=== PATIENT | male | born 1935 | race Caucasian/White ===

== ENCOUNTER 2016-10-27 15:35 | Emergency (ER) | payer MEDICARE, BC ==
[2016-10-27 15:43] VITALS: BP 130/78
[2016-10-27 16:11] LABS: RAPID STREP SCREEN REAGENT QC YELLOW (YELLOW)
[2016-10-27] MEDS ORDERED: DEXAMETHASONE 10 MG/ML VIAL PO STA (17:02)
--- NOTE | 2016-10-27 17:05 | ED Physician Documentation ---
PD HPI HEENT - Stated complaint Stated Complaint: THROAT PX - Chief complaint Chief Complaint: Heent - History obtained from History obtained from: Patient - History of Present Illness Timing - onset: How many days ago (2) Timing - duration: Days (2) Timing - details: Gradual onset, Still present Location: Throat Improves: Medication Worsens: Sw[place]ing Associated symptoms: Congestion, Cough Similar symptoms before: Has not had sx before Recently seen: Not recently seen - Additional information Additional information: 81 y/o male with onset of sore throat over the past 2 days has had rapid progression of symptoms today. Review of Systems Constitutional: reports: Chills, Myalgias, Fatigue Eyes: denies: Decreased vision Ears: denies: Ear pain Nose: reports: Congestion Throat: reports: Sore throat Cardiac: denies: Chest pain / pressure Respiratory: reports: Cough. denies: Dyspnea GI: denies: Nausea, Vomiting : denies: Dysuria PD PAST MEDICAL HISTORY - Past Medical History Past Medical History: Yes Cardiovascular: Hypertension, Arrhythmia Respiratory: None Neuro: None Endocrine/Autoimmune: HyPOthyroidism, Other GI: None : Retention HEENT: None Psych: None Musculoskeletal: Osteoarthritis, Other Derm: None - Past Surgical History Past Surgical History: Yes Ortho: Knee replacement, Spine surgery - Present Medications Home Medications: Ambulatory Orders Medication Instructions Recorded Confirmed Flaxseed Oil [Flax Oil] 1,000 mg PO DAILY 07/05/13 03/08/16 Hydrochlorothiazide 12.5 mg PO DAILY 07/05/13 03/08/16 Levothyroxine [Synthroid] 75 mcg PO QDAC 07/05/13 03/08/16 Lutein Extract/Zeaxanthin Ext 1 each PO DAILY 07/05/13 03/08/16 [Lutein 15 mg Softgel] Metoprolol Tartrate [Lopressor] 25 mg PO BID 07/05/13 03/08/16 Multivitamin [Multi-Vitamin Daily] 1 each PO DAILY 07/05/13 03/08/16 [place]-3 Fatty Acids/Fish Oil [Fish 1 each PO DAILY 07/05/13 03/08/16 Oil 1,000 mg Capsule] Amoxicillin 500 mg PO TID #30 capsule 10/27/16 - Allergies Allergies/Adverse Reactions: Allergies Allergy/AdvReac Type Severity Reaction Status Date / Time No Known Drug Allergies Allergy Verified 10/27/16 15:43 - Social History Does the pt smoke?: No Smoking Status: Never smoker Does the pt drink ETOH?: No Does the pt have substance abuse?: No - Immunizations Immunizations are current?: Yes - POLST Patient has POLST: No PD ED PE NORMAL - Vitals Vital signs reviewed: Yes (normal ) - General General: No acute distress, Well developed/nourished - HEENT HEENT: Atraumatic, PERRL, EOMI, Ears normal, Other (The pharynx is with mild erythema and no significant swelling ) - Neck Neck: Supple, no meningeal sign, No bony TTP - Cardiac Cardiac: RRR, No murmur - Respiratory Respiratory: No respiratory distress, Clear bilaterally - Derm Derm: Normal color, Warm and dry, No rash - Extremities Extremities: No deformity, No edema - Neuro Neuro: No motor deficit, No sensory deficit - Psych Psych: Normal mood, Normal affect Results - Vitals Vitals: Vital Signs - 24 hr 10/27/16 15:40 Temperature 37 C Heart Rate 68 Respiratory 14 Rate Blood Pressure 130/78 O2 Saturation 100 Oxygen O2 Source [With Activity] Room air O2 Source [Without Activity] Room air O2 Source Room air - Labs Labs: Laboratory Tests 10/27/16 15:50 Group A Strep Rapid POSITIVE H PD MEDICAL DECISION MAKING - ED course Complexity details: considered differential, d/w patient ED course: 81 y/o male had his tonsils out at age 6 and now has acute strep pharyngitis. He is given decadron and we will put him on a course of amoxicillin. Departure - Departure Disposition: 01 Home, Self Care Clinical Impression: Strep pharyngitis Condition: Stable Instructions: ED Strep Pharyngitis Conf Follow-Up: Elicia Melgar MD [Primary Care Provider] - Prescriptions: Amoxicillin 500 mg PO TID #30 capsule
[2016-10-27] MEDS ORDERED: DEXAMETHASONE 10 MG/ML VIAL ONE (17:10)
== END 2016-10-27 17:15 | disposition home or self-care (01) ==
LOC: ED 15:35
DX: J02.0 Streptococcal pharyngitis (principal); I10 Essential (primary) hypertension
CPT/HCPCS: 87430; 99283

== ENCOUNTER 2017-02-20 21:17 | Emergency (ER) | payer MEDICARE, BC ==
[2017-02-20 21:57] LABS: BASOPHILS % (AUTO) 0.5 %; EOSINOPHILS # (AUTO) 0.1 10^3/uL (0.0-0.7); EOSINOPHILS % (AUTO) 0.7 %; HCT - HEMATOCRIT 41.5 % (42.0-52.0); HGB - HEMOGLOBIN 14.6 g/dL (14.0-18.0); LYMPHOCYTES # (AUTO) 1.3 10^3/uL (1.5-3.5); LYMPHOCYTES % (AUTO) 12.7 %; MEAN CORPUSCULAR HEMOGLOBIN 33.6 pg (27.0-31.0); MEAN CORPUSCULAR HGB CONC 35.3 g/dL (32.0-36.0); MEAN CORPUSCULAR VOLUME 95.3 fL (80.0-94.0); MEAN PLATELET VOLUME 7.5 fL (7.4-11.4); MONOCYTES # (AUTO) 0.9 10^3/uL (0.0-1.0); MONOCYTES % (AUTO) 8.2 %; NEUTROPHILS # (AUTO) 8.2 10^3/uL (1.5-6.6); NEUTROPHILS % (AUTO) 77.9 %; RED BLOOD COUNT 4.35 10^6/uL (4.70-6.10); RED CELL DISTRIBUTION WIDTH 12.9 % (12.0-15.0); UNCORRECTED WHITE BLOOD COUNT 10.5 x10^3/uL; WHITE BLOOD COUNT 10.5 x10^3/uL (4.8-10.8)
--- NOTE | 2017-02-20 22:06 | ED Physician Documentation ---
PD HPI ABD PAIN - Stated complaint Stated Complaint: ABD PAIN - Chief complaint Chief Complaint: Abd Pain - History obtained from History obtained from: Patient - History of Present Illness Timing - onset: How many hours ago (5) Timing - duration: Hours Timing - details: Abrupt onset, Now resolved Quality: Cramping, Sharp, Fullness/distended, Pain Location: Epigastric Improved by: Laying still Worsened by: Position, Palpation Associated symptoms: Nausea, Diarrhea. No: Vomiting Similar symptoms before: Has not had sx before Recently seen: Not recently seen - Additional information Additional information: 81-year-old male with a history of hypertension and no prior abdominal surgeries has developed pain after eating this evening. He had some feeling that he was bloated and had severe pain. The pain was severe enough that he drove himself to the emergency department this evening for evaluation. Since being here in the emergency department his pain is resolved. He has not had issues with this type of pain previously. He did have eggs and waffles for dinner tonight and he notes that he had some mild discomfort even before that but he does not remember what he had for lunch today. His symptoms are now resolved. Review of Systems Constitutional: denies: Fever, Chills, Myalgias Eyes: denies: Decreased vision Ears: denies: Ear pain Nose: denies: Congestion Throat: denies: Sore throat Cardiac: denies: Chest pain / pressure, Palpitations Respiratory: denies: Dyspnea, Cough GI: reports: Abdominal Pain, Nausea, Diarrhea. denies: Vomiting : denies: Dysuria, Frequency Musculoskeletal: denies: Neck pain, Back pain Neurologic: denies: Generalized weakness, Focal weakness, Numbness PD PAST MEDICAL HISTORY - Past Medical History Past Medical History: Yes Cardiovascular: Hypertension, Arrhythmia Respiratory: None Neuro: None Endocrine/Autoimmune: HyPOthyroidism, Other GI: None : Retention HEENT: None Psych: None Musculoskeletal: Osteoarthritis, Other Derm: None - Past Surgical History Past Surgical History: Yes Ortho: Knee replacement, Spine surgery - Present Medications Home Medications: Ambulatory Orders Medication Instructions Recorded Confirmed Flaxseed Oil [Flax Oil] 1,000 mg PO DAILY 07/05/13 02/20/17 Hydrochlorothiazide 12.5 mg PO DAILY 07/05/13 02/20/17 Levothyroxine [Synthroid] 75 mcg PO QDAC 07/05/13 02/20/17 Lutein Extract/Zeaxanthin Ext 1 each PO DAILY 07/05/13 02/20/17 [Lutein 15 mg Softgel] Metoprolol Tartrate [Lopressor] 25 mg PO BID 07/05/13 02/20/17 Multivitamin [Multi-Vitamin Daily] 1 each PO DAILY 07/05/13 02/20/17 [place]-3 Fatty Acids/Fish Oil [Fish 1 each PO DAILY 07/05/13 02/20/17 Oil 1,000 mg Capsule] - Allergies Allergies/Adverse Reactions: Allergies Allergy/AdvReac Type Severity Reaction Status Date / Time No Known Drug Allergies Allergy Verified 02/20/17 21:23 - Social History Does the pt smoke?: No Smoking Status: Never smoker Does the pt drink ETOH?: No Does the pt have substance abuse?: No - Immunizations Immunizations are current?: Yes - POLST Patient has POLST: No PD ED PE NORMAL - Vitals Vital signs reviewed: Yes (Tachycardic and hypertensive) - General General: Alert and oriented X 3, No acute distress, Well developed/nourished - HEENT HEENT: Atraumatic, PERRL - Neck Neck: Supple, no meningeal sign - Cardiac Cardiac: No murmur, Other (Tachycardia to 100) - Respiratory Respiratory: No respiratory distress, Clear bilaterally - Abdomen Abdomen: Soft, Non tender, Other (Normal bowel sounds throughout the reactive and specifically no right upper quadrant tenderness. No tenderness to deep palpation to any quadrant of the abdomen.) - Back Back: No CVA TTP, No spinal TTP - Derm Derm: Normal color, Warm and dry, No rash - Extremities Extremities: No deformity, No edema, No calf tenderness / cord - Neuro Neuro: No motor deficit, No sensory deficit - Psych Psych: Normal mood, Normal affect Results - Vitals Vitals: Vital Signs - 24 hr 02/20/17 02/20/17 02/20/17 21:19 22:00 22:40 Temperature 37 C Heart Rate 112 H 95 87 Respiratory 19 13 13 Rate Blood Pressure 135/86 H 102/74 102/76 O2 Saturation 97 97 96 02/20/17 02/21/17 02/21/17 23:34 00:30 01:35 Temperature 36.3 C L Heart Rate 96 90 90 Respiratory 13 17 14 Rate Blood Pressure 104/70 106/79 107/89 H O2 Saturation 99 99 98 Oxygen O2 Source [With Activity] Room air O2 Source [Without Activity] Room air O2 Source Room air - Labs Labs: Laboratory Tests 02/20/17 02/20/17 02/20/17 21:47 21:47 21:47 WBC 10.5 RBC 4.35 L Hgb 14.6 Hct 41.5 L MCV 95.3 H MCH 33.6 H MCHC 35.3 RDW 12.9 Plt Count 221 MPV 7.5 Neut # 8.2 H Lymph # 1.3 L [place] # 0.9 Eos # 0.1 Baso # 0.0 Absolute Nucleated RBC 0.00 Nucleated RBCs 0.0 Sodium 136 Potassium 3.7 Chloride 102 Carbon Dioxide 25 Anion Gap 9.0 BUN 23 H Creatinine 1.1 Estimated GFR (MDRD) 64 L Glucose 137 H Calcium 9.0 Total Bilirubin 0.8 AST 25 ALT 21 Alkaline Phosphatase 45 Troponin I < 0.04 Total Protein 6.7 Albumin 4.0 Globulin 2.7 Albumin/Globulin Ratio 1.5 Lipase 30 Urine Color Urine Clarity Urine pH Ur Specific [place] Urine Protein Urine Glucose (UA) Urine Ketones Urine Occult Blood Urine Nitrite Urine Bilirubin Urine Urobilinogen Ur Leukocyte Esterase Ur Microscopic Review Urine Culture Comments 02/20/17 22:47 WBC RBC Hgb Hct MCV MCH MCHC RDW Plt Count MPV Neut # Lymph # [place] # Eos # Baso # Absolute Nucleated RBC Nucleated RBCs Sodium Potassium Chloride Carbon Dioxide Anion Gap BUN Creatinine Estimated GFR (MDRD) Glucose Calcium Total Bilirubin AST ALT Alkaline Phosphatase Troponin I Total Protein Albumin Globulin Albumin/Globulin Ratio Lipase Urine Color YELLOW Urine Clarity CLEAR Urine pH 5.5 Ur Specific [place] >=1.030 H Urine Protein NEGATIVE Urine Glucose (UA) NEGATIVE Urine Ketones 15 H Urine Occult Blood NEGATIVE Urine Nitrite NEGATIVE Urine Bilirubin NEGATIVE Urine Urobilinogen 0.2 (NORMAL) Ur Leukocyte Esterase NEGATIVE Ur Microscopic Review NOT INDICATED Urine Culture Comments NOT INDICATED - Rads (name of study) gb ultrasound Radiology: Prelim report reviewed (Impression: 1. Coarsened liver parenchyma without mass or intrahepatic bile duct dilation. 2. Distended gallbladder without gallstones, pericholecystic fluid or sonographic Esteves sign. No gallbladder wall thickening. 3.Normal caliber common bile duct common bile duct not well seen due to bowel gas.), EMP read indepedently, See rad report Procedures - Bedside sono Bedside sono by EMP: With use of bedside ultrasound the gallbladder is imaged in shows a distended gallbladder with a solitary stone and no sonographic tenderness no wall thickening or pericholecystic fluid. PD MEDICAL DECISION MAKING - ED course Complexity details: reviewed old records, reviewed results, re-evaluated patient , considered differential, d/w patient ED course: Relatively healthy 81-year-old male presents to the emergency department with an episode of abdominal pain after eating that is now resolved and on bedside examination he does have a solitary stone in his gallbladder with a nontender gallbladder. I did offer the patient workup of this time concerning his gallbladder and he would like to proceed with this. The formal ultrasound is read with a distended gallbladder with a polyp and not a stone. Departure - Departure Disposition: 01 Home, Self Care Clinical Impression: Abdominal pain Qualifiers: Abdominal location: epigastric Qualified Code(s): R10.13 - Epigastric pain Condition: Stable Instructions: ED Abdominal Pain Unkn Cause Follow-Up: Elicia Melgar MD [Primary Care Provider] - Discharge Date/Time: 02/21/17 01:39
[2017-02-20 22:07] LABS: BILIRUBIN,TOTAL 0.8 mg/dL (0.2-1.0); CREATININE 1.1 mg/dL (0.6-1.2); POTASSIUM 3.7 mmol/L (3.5-5.0); TOTAL PROTEIN 6.7 g/dL (6.7-8.2)
[2017-02-20 22:08] LABS: ALBUMIN/GLOBULIN RATIO 1.5 (1.0-2.2)
[2017-02-20 22:56] LABS: BILIRUBIN,URINE NEGATIVE (NEGATIVE); PH,URINE 5.5 PH (5.0-7.5)
[2017-02-20 22:58] LABS: UA CHARGE (STRIP ONLY) YES; UR CULTURE IF IND NOT INDICATED
--- NOTE | 2017-02-20 23:50 | Ultrasound Preliminary Report ---
Exam: US Abdomen Limited IMPRESSION: 1. Coarse liver parenchyma without mass or intrahepatic bile duct dilation. 2. Distended gallbladder without gallstones, pericholecystic fluid or sonographic Esteves sign. No gal lbladder wall thickening. 3. Normal caliber common bile duct. Common bile duct calculus seen due to bowel gas. [facility] SITE ID: [id number]
--- NOTE | 2017-02-21 01:02 | Ultrasound Report ---
EXAM: ABDOMEN ULTRASOUND LIMITED, RUQ EXAM DATE: 02/20/2017 11:24 PM. CLINICAL HISTORY: Episode of severe pain. COMPARISON: None. TECHNIQUE: Real-time scanning was performed with static images obtained. FINDINGS: Liver: Coarse liver parenchyma without mass or intrahepatic bile duct dilation. 14.6 cm. Main portal vein flow: Hepatopetal. Gallbladder: 5 mm gallbladder polyp. No gallstones, gallbladder wall thickening, pericholecystic flui d or sonographic Esteves sign. Biliary System: CBD measures 4 mm. No intrahepatic or extrahepatic ductal dilatation. Not well-seen. Right kidney: Length measures 10.5 cm. No hydronephrosis. Other: None. IMPRESSION: 1. Coarse liver parenchyma without mass or intrahepatic bile duct dilation. 2. Distended gallbladder without gallstones, pericholecystic fluid or sonographic Esteves sign. No gal lbladder wall thickening. 3. Normal caliber common bile duct. Common bile duct not well seen due to bowel gas. [facility] Referring Provider Line: [phone] SITE ID: [id number]
[2017-02-21 01:39] VITALS: BP 107/89
== END 2017-02-21 01:39 | disposition home or self-care (01) ==
LOC: ED 21:17
DX: R10.13 Epigastric pain (principal); I10 Essential (primary) hypertension; I49.9 Cardiac arrhythmia, unspecified; E03.9 Hypothyroidism, unspecified; M19.90 Unspecified osteoarthritis, unspecified site
CPT/HCPCS: 36415; 76705; 80053; 81001; 81003; 83690; 84484; 85025; 87086; 93005; 99283; 99284

== ENCOUNTER 2017-06-14 08:14 | Outpatient (CLI) | payer MEDICARE, BC ==
--- NOTE | 2017-06-14 19:49 | Ultrasound Report ---
DATE OF SERVICE: 06/14/2017 LIMITED RETROPERITONEAL ULTRASOUND: 06/14/2017 CLINICAL INDICATION: Peripheral arterial disease, hypercholesterolemia. TECHNIQUE: Real-time sonographic vascular imaging was performed by the roll builder through the abdominal aorta utilizing both color-flow and Doppler spectral analysis. Multiple charter representative static images were saved for review. The abdominal aorta is normal in caliber, measuring 2.9 cm proximally, 2.5 cm in the mid portion, and 2.2 cm distally. The iliacs are normal in caliber. No free fluid is seen. IMPRESSION: No evidence of abdominal aortic aneurysm. TD: 06/14/2017 20:48
== END 2017-06-14 08:15 | disposition home or self-care (01) ==
LOC: DI 08:14
PROVIDERS: ATTEND Internal Medicine
DX: I73.9 Peripheral vascular disease, unspecified (principal); E78.00 Pure hypercholesterolemia, unspecified; E03.9 Hypothyroidism, unspecified; I10 Essential (primary) hypertension
CPT/HCPCS: 76775

== ENCOUNTER 2017-06-14 08:54 | Outpatient (CLI) | payer MEDICARE, BC ==
--- NOTE | 2017-06-17 17:59 | Ultrasound Report ---
CAROTID DUPLEX: 06/14/2017 CLINICAL INDICATION: Hypercholesterolemia. TECHNIQUE: Real-time sonographic vascular imaging was performed by the byproducts extractor through the carotid arteries utilizing both color-flow and Doppler spectral analysis. Multiple event representative static images were saved for review. FINDINGS RIGHT Vessel PSV cm/sec EDV cm/sec ICA/CCA RSV Ratio Degree of Stenosis Plaque Estimate % RCCA Prox 68 -- -- RCCA Dist 56 12 -- RECA 94 -- -- RT BULB 53 11 0.94 ELLA Prox 41 14 0.73 ELLA Mid 46 15 0.82 ELLA Dist 53 18 0.94 RVA 28 -- -- RVA flow direction: Antegrade. LEFT Vessel PSV cm/sec EDV cm/sec ICA/CCA RSV Ratio Degree of Stenosis Plaque Estimate % LCCA Prox 77 -- -- LCCA Dist 58 13 -- LECA 66 -- -- LFT BULB 33 10 0.56 LICA Prox 51 18 0.87 LICA Mid 55 23 0.94 LICA Dist 61 23 1.05 LVA 45 -- -- LVA flow direction: Antegrade. Velocity criteria are extrapolated from diameter data as defined by the Society of Radiologists in Ultrasound Consensus Conference Radiology 2003; 229; 340-346. Degree of Stenosis % ICA PSV cm/sec ICA/CCA RSV Ratio ICA EDV cm/sec Plaque Estimate % Normal < 125 < 40 < 2.0 None <50 < 125 <40 < 2.0 < 50 50-69 125-130 40-100 2.0-4.0 >/=50 >/=70 but less than near occlusion > 230 > 100 > 4.0 >/=50 Near occlusion High, low or undetectable Variable Variable Visible Total occlusion Undetectable Not applicable Not applicable No detectable lumen RIGHT: There is no plaquing in the right carotid bifurcation. No hemodynamically significant stenosis is seen. LEFT: There is minimal calcified plaquing in the left carotid bifurcation. There is no evidence of a hemodynamically significant carotid stenosis. The vertebral arteries demonstrate antegrade flow bilaterally. IMPRESSION: No evidence of a hemodynamically significant carotid stenosis. TD: 06/14/2017 19:44 [facility]
== END 2017-06-14 08:55 | disposition home or self-care (01) ==
LOC: DI 08:54
PROVIDERS: ATTEND Internal Medicine
DX: I73.9 Peripheral vascular disease, unspecified (principal); E78.00 Pure hypercholesterolemia, unspecified; E03.9 Hypothyroidism, unspecified; I10 Essential (primary) hypertension
CPT/HCPCS: 76775; 93880

== ENCOUNTER 2017-11-30 18:54 | Observation (INO) | payer BC, MEDICARE ==
[2017-11-30] MEDS ORDERED: ASPIRIN CHEW 81 MG TABLET ONE (19:54)
--- NOTE | 2017-11-30 20:16 | XRAY Report ---
Procedure Date: 11/30/2017 Accession Number: [id number] / [id number] Procedure: XR - Chest 1 View X-Ray CPT Code: 23174 FULL RESULT: EXAM: CHEST RADIOGRAPHY EXAM DATE: 11/30/2017 08:02 PM. CLINICAL HISTORY: CHEST PAIN. COMPARISON: 06/09/2014. TECHNIQUE: 1 view. FINDINGS: Lungs/Pleura: No focal opacities evident. No pleural effusion. No pneumothorax. Mediastinum: Within exam limitations, the cardiomediastinal contour is normal. Other: None. IMPRESSION: Normal single view chest. [facility]
--- NOTE | 2017-11-30 20:27 | ED Physician Documentation ---
PD HPI CHEST PAIN - Stated complaint Stated Complaint: CP - History obtained from History obtained from: Patient, Friend - History of Present Illness Timing - onset: Yesterday (Intermittent chest pain starting yesterday, started when he was reaching across his chest. Been intermittent ever since usually with arm motion, but his friend says he looked bad while watching a movie today and he was in pain while watching a movie when he moving. He has some nebulous heart history but they do not know the details.) Review of Systems Ten Systems: 10 systems reviewed and negative Constitutional: denies: Fever, Chills Cardiac: reports: Chest pain / pressure. denies: Palpitations, Pedal edema, Calf pain Respiratory: denies: Dyspnea, Cough, Hemoptysis, Wheezing PD PAST MEDICAL HISTORY - Past Medical History Cardiovascular: Hypertension, Arrhythmia Respiratory: None Endocrine/Autoimmune: HyPOthyroidism, Other GI: None : Retention HEENT: None Psych: None Musculoskeletal: Osteoarthritis, Other Derm: None - Past Surgical History Past Surgical History: Yes Ortho: Knee replacement, Spine surgery - Present Medications Home Medications: Ambulatory Orders Medication Instructions Recorded Confirmed Flaxseed Oil [Flax Oil] 1,000 mg PO DAILY 07/05/13 02/20/17 Levothyroxine [Synthroid] 75 mcg PO QDAC 07/05/13 02/20/17 Lutein Extract/Zeaxanthin Ext 1 each PO DAILY 07/05/13 02/20/17 [Lutein 15 mg Softgel] Metoprolol Tartrate [Lopressor] 25 mg PO BID 07/05/13 02/20/17 Multivitamin [Multi-Vitamin Daily] 1 each PO DAILY 07/05/13 02/20/17 [place]-3 Fatty Acids/Fish Oil [Fish 1 each PO DAILY 07/05/13 02/20/17 Oil 1,000 mg Capsule] hydroCHLOROthiazide 12.5 mg PO DAILY 07/05/13 02/20/17 [Hydrochlorothiazide] - Allergies Allergies/Adverse Reactions: Allergies Allergy/AdvReac Type Severity Reaction Status Date / Time No Known Drug Allergies Allergy Verified 11/30/17 20:28 - Social History Does the pt smoke?: No Smoking Status: Never smoker Does the pt drink ETOH?: No Does the pt have substance abuse?: No - Family History Family history: reports: Non contributory - Immunizations Immunizations are current?: Yes - POLST Patient has POLST: No PD ED PE NORMAL - Vitals Vital signs reviewed: Yes - General General: No acute distress, Well developed/nourished, Other (He clearly has some memory difficulties.). No: Alert and oriented X 3 - HEENT HEENT: PERRL, EOMI - Neck Neck: Supple, no meningeal sign, No bony TTP - Cardiac Cardiac: RRR, No murmur - Respiratory Respiratory: No respiratory distress, Clear bilaterally - Abdomen Abdomen: Normal bowel sounds, Soft, Non tender - Back Back: No CVA TTP, No spinal TTP - Derm Derm: Normal color, Warm and dry - Extremities Extremities: No edema, No calf tenderness / cord - Neuro Neuro: dermatologist managing partner 2-12 intact Results - Vitals Vitals: Oxygen O2 Source [With Activity] Room air O2 Source [Without Activity] Room air O2 Source Room air - EKG (time done) 1904 Rate: Rate (enter#) (81) Rhythm: NSR [place]: Normal QRS: LVH Ischemia: Normal ST segments Computer interpretation: Agree with computer - Labs Labs: Laboratory Tests 11/30/17 11/30/17 11/30/17 19:05 19:05 19:05 WBC 8.0 RBC 4.25 L Hgb 13.8 L Hct 41.5 L MCV 97.7 H MCH 32.6 H MCHC 33.3 RDW 13.4 Plt Count 234 MPV 8.1 Neut # (Auto) 5.3 Lymph # (Auto) 1.6 [place] # (Auto) 0.9 Eos # (Auto) 0.1 Baso # (Auto) 0.0 Absolute Nucleated RBC 0.00 Nucleated RBC % 0.0 Sodium 136 Potassium 3.6 Chloride 101 Carbon Dioxide 27 Anion Gap 8.0 BUN 22 H Creatinine 1.0 Estimated GFR (MDRD) 72 L Glucose 114 H Calcium 9.4 Total Bilirubin 0.7 AST 23 ALT 26 Alkaline Phosphatase 68 Troponin I < 0.04 Total Protein 7.4 Albumin 4.2 Globulin 3.2 Albumin/Globulin Ratio 1.3 Lipase 29 PD MEDICAL DECISION MAKING - ED course ED course: 82-year-old gentleman with atypical chest pain of days duration but given advanced age despite negative EKG and biomarkers will be admitted for further evaluation and treatment, call to Dr. Borrego for admission at around 8 PM. - Sepsis Event Vital Signs: Oxygen O2 Source [With Activity] Room air O2 Source [Without Activity] Room air O2 Source Room air Departure - Departure Disposition: ED Place in Observation Clinical Impression: Atypical chest pain Discharge Date/Time: 11/30/17 22:09
[2017-11-30] MEDS ORDERED: MORPHINE 2 MG/ML SYRINGE IVP PRN (20:48)
[2017-11-30] MEDS ORDERED: ONDANSETRON 4 MG/2 ML VIAL IVP PRN (20:48)
[2017-11-30] MEDS ORDERED: NITROGLYCERIN SL 0.4 MG TABLET SL PRN (20:48)
[2017-11-30] MEDS ORDERED: ACETAMINOPHEN 325 MG TABLET PO PRN (20:48)
[2017-11-30] MEDS ORDERED: SODIUM CHLORIDE FLUSH 0.9% 10 ML SYRINGE IVP PRN (20:48)
[2017-11-30] MEDS ORDERED: PROMETHAZINE 25 MG/1 ML VIAL IM PRN (20:48)
[2017-11-30] MEDS ORDERED: oxyCODONE 5 MG TABLET PO PRN ×2 (20:48)
[2017-11-30] MEDS ORDERED: PROCHLORPERAZINE 10 MG/2 ML VIAL IVP PRN (20:48)
[2017-11-30] MEDS ORDERED: ZOLPIDEM 5 MG TABLET PO PRN (20:48)
[2017-11-30 20:55] LABS: ALBUMIN 4.2 g/dL (3.2-5.5); ALBUMIN/GLOBULIN RATIO 1.3 (1.0-2.2); BASOPHILS % (AUTO) 0.3 %; BILIRUBIN,TOTAL 0.7 mg/dL (0.2-1.0); CALCIUM 9.4 mg/dL (8.5-10.3); EOSINOPHILS # (AUTO) 0.1 10^3/uL (0.0-0.7); EOSINOPHILS % (AUTO) 1.6 %; HGB - HEMOGLOBIN 13.8 g/dL (14.0-18.0); LYMPHOCYTES # (AUTO) 1.6 10^3/uL (1.5-3.5); LYMPHOCYTES % (AUTO) 20.6 %; MEAN CORPUSCULAR HEMOGLOBIN 32.6 pg (27.0-31.0); MEAN CORPUSCULAR HGB CONC 33.3 g/dL (32.0-36.0); MEAN CORPUSCULAR VOLUME 97.7 fL (80.0-94.0); MEAN PLATELET VOLUME 8.1 fL (7.4-11.4); MONOCYTES # (AUTO) 0.9 10^3/uL (0.0-1.0); MONOCYTES % (AUTO) 10.9 %; NEUTROPHILS # (AUTO) 5.3 10^3/uL (1.5-6.6); NEUTROPHILS % (AUTO) 66.6 %; PLT - PLATELET COUNT 234 10^3/uL (130-450); RED BLOOD COUNT 4.25 10^6/uL (4.70-6.10); RED CELL DISTRIBUTION WIDTH 13.4 % (12.0-15.0); TOTAL PROTEIN 7.4 g/dL (6.7-8.2)
[2017-11-30] MEDS ORDERED: ATORVASTATIN 40 MG TABLET PO SCH (21:00)
[2017-11-30] MEDS ORDERED: SODIUM CHLORIDE 0.9% 1,000 ML IV SCH (21:00)
[2017-11-30] MEDS: METOPROLOL TARTRATE 25 MG TABLET PO SCH (23:21)
--- NOTE | 2017-11-30 23:26 | HISTORY & PHYSICAL EXAMINATION ---
Chief Complaint - Chief Complaint Chief Complaint: Chest pain History of Present Illness - Admitted From Admitted From:: Emergency department - History Obtained From Records Reviewed: Yes History obtained from: Patient and patient's girlfriend Exam Limitations: None - History of Present Illness HPI Comment/Other: Patient is a 82-year-old gentleman with a past medical history significant for mild cognitive impairment, hypertension, macular degeneration and hypothyroidism who presented to the emergency department with a chief complaint of chest pain. The patient states that he spent yesterday morning rearranging his bed and doing some chores around the house. He states while he was doing this he noticed that when he was reaching across with his right arm he would get pain in the right side of his chest. He states that he has never had pain like this before. He denies any associated shortness of air, palpitations, nausea or diaphoresis. He states he thought it was probably just a muscle strain. However the pain continued to occur off and on through the day. He states this morning he continued to have chest pain and it was occurring with and without movement. He states it became more persistent throughout the day. He states that it was now located in the center of the chest and seemed to radiate up to his left shoulder. He states that him and his girlfriend watched a movie this afternoon and he could not get comfortable as he continued to have this discomfort in his chest. The patient's girlfriend became concerned and convinced him to come to the emergency department. The patient denies any cough , fevers or chills. Patient denies any headaches, blurred vision, runny nose, sore throat, nasal congestion, difficulty swallowing, abdominal pain, diarrhea, constipation, urinary urgency, urinary frequency, dysuria, increased lower extremity swelling , orthopnea, PND, joint pain, muscle aches, joint swelling, back pain, neck stiffness, hair loss, skin changes, recent unintentional weight loss or weight gain, changes in his appetite or any focal neurologic deficits. On presentation to the emergency department the patient was afebrile and slightly hypertensive but otherwise was not in any respiratory distress. The patient underwent routine lab work which was all within normal limits. The patient had a troponin that was less than 0.04. The patient's EKG showed normal sinus rhythm with normal ST segments and some left ventricular hypertrophy. The patient also had a chest x-ray in the emergency department that was normal. Given the patient's age and risk factor of hypertension with a somewhat atypical presentation for chest pain the patient was placed in observation for further monitoring and rule out of acute coronary syndrome with serial troponins. History - Past Medical History Cardiovascular: reports: Hypertension Respiratory: reports: None Endocrine/Autoimmune: reports: HyPOthyroidism, Other GI: reports: None : reports: Retention HEENT: reports: None Psych: reports: None Musculoskeletal: reports: Osteoarthritis, Other Derm: reports: None MRSA Hx?: No - Past Surgical History Ortho: reports: Knee replacement, Spine surgery - Family & Social History Family History: Mother: (Parents were healthy), Father: , Brother: Hypertension Living arrangement: At home Living Situation: Alone Social History Notes: The patient lives alone in [place] and has been living there for the last 20 years. He is originally from [place] but moved all throughout the country as he worked for [employer]. He decided to retire on [facility]. He was previously and had 3 children 1 of whom has . The patient used to smoke a pipe but quit 20 years ago, he drinks wine daily and denies any illicit drug use. - POLST Patient has POLST: No POLST Status: Full Code Meds/Allgy - Home Medications Home Medications: Ambulatory Orders Medication Instructions Recorded Confirmed Flaxseed Oil [Flax Oil] 1,000 mg PO DAILY 07/05/13 02/20/17 Levothyroxine [Synthroid] 75 mcg PO QDAC 07/05/13 02/20/17 Lutein Extract/Zeaxanthin Ext 1 each PO DAILY 07/05/13 02/20/17 [Lutein 15 mg Softgel] Metoprolol Tartrate [Lopressor] 25 mg PO BID 07/05/13 02/20/17 Multivitamin [Multi-Vitamin Daily] 1 each PO DAILY 07/05/13 02/20/17 [place]-3 Fatty Acids/Fish Oil [Fish 1 each PO DAILY 07/05/13 02/20/17 Oil 1,000 mg Capsule] hydroCHLOROthiazide 12.5 mg PO DAILY 07/05/13 02/20/17 [Hydrochlorothiazide] - Allergies Allergies/Adverse Reactions: Allergies Allergy/AdvReac Type Severity Reaction Status Date / Time No Known Drug Allergies Allergy Verified 11/30/17 20:28 Review of Systems - Other Findings Other Findings: A comprehensive review of systems was performed the pertinent positives and negatives are stated above in the HPI and the remainder of the review of systems is negative. Exam - Vital Signs Reviewed Vital Signs: Yes Vital Signs: Vital Signs x48h Temp Pulse Pulse Resp BP BP Pulse Ox 11/30/17 22:21 36.9 C 73 18 138/71 H 99 11/30/17 20:53 36.7 C 73 15 144/93 H 99 - Physical Exam General Appearance: positive: No acute distress, Alert Eyes Bilateral: positive: Normal inspection, PERRL, EOMI, No lid inflammation, Conjunctivae nml, No scleral icterus ENT: positive: ENT inspection nml, Pharynx nml, No signs of dehydration. negative: Purulent nasal drainage, Pharyngeal erythema, Oral lesions Neck: positive: Nml inspection, Thyroid nml, No JVD, Trachea midline. negative : Thyromegaly, Lymphadenopathy (R), Lymphadenopathy (L), Stiff neck Respiratory: positive: No respiratory distress, Breath sounds nml, Other (Chest wall was tender). negative: Wheezes, Rales, Rhonchi Cardiovascular: positive: Regular rate & rhythm, No murmur, No gallop Peripheral Pulses: positive: 2+ Abdomen: positive: Non-tender, No organomegaly, Nml bowel sounds, No distention. negative: Guarding, Rebound, Hepatomegaly Back: positive: Nml inspection. negative: CVA tenderness (R), CVA tenderness (L ) Skin: positive: Color nml, No rash, Warm. negative: Cyanosis, Diaphoresis, Pallor, Skin rash Extremities: positive: Non-tender, Full ROM, Nml appearance, No pedal edema Neurologic/Psychiatric: positive: Oriented x3, CN's nml (2-12), Motor nml, Sensation nml, Mood/affect nml Conclusion/Plan - Problem List (1) Chest pain Conclusion/Plan: Patient presented with chest pain which started yesterday after he did some work around the house. Patient noticed the chest pain with certain movements. It then became more persistent and was bothering him at rest. The patient has risk factor of hypertension and age. He states that he did have one episode of chest pain many years ago for which he did have a cardiac cath that was negative. This chest pain presentation seems to be very atypical and favors a musculoskeletal type chest pain. However given the patient's age and risk factors we have placed him in observation for serial troponins and echocardiogram. Plan: Serial troponins x3 Telemetry monitoring Nitroglycerin when necessary for chest pain Aspirin Lipitor Echo Lipid profile Qualifiers: Chest pain type: unspecified Qualified Code(s): R07.9 - Chest pain, unspecified (2) Hypertension Conclusion/Plan: The patient has a history of hypertension blood pressure is mildly elevated on presentation. The patient does take metoprolol at home for hypertension. We will continue his home dose of metoprolol and monitor his blood pressure and titrate medication if needed. Qualifiers: Hypertension type: essential hypertension Qualified Code(s): I10 - Essential (primary) hypertension (3) Hypothyroidism Conclusion/Plan: The patient has a history of hypothyroidism. He takes Synthroid at home. He currently does not appear to have any symptoms of hypothyroidism and appears stable. We will continue his Synthroid and check his TSH in the morning. Qualifiers: Hypothyroidism type: unspecified Qualified Code(s): E03.9 - Hypothyroidism , unspecified - Lab Results Lab results reviewed: Yes Fish Bones: 11/30/17 19:05 11/30/17 19:05 Other Lab Results: Laboratory Results WBC 8.0 x10^3/uL (4.8-10.8) 11/30/17 19:05 RBC 4.25 10^6/uL (4.70-6.10) L 11/30/17 19:05 Hgb 13.8 g/dL (14.0-18.0) L 11/30/17 19:05 Hct 41.5 % (42.0-52.0) L 11/30/17 19:05 MCV 97.7 fL (80.0-94.0) H 11/30/17 19:05 MCH 32.6 pg (27.0-31.0) H 11/30/17 19:05 MCHC 33.3 g/dL (32.0-36.0) 11/30/17 19:05 RDW 13.4 % (12.0-15.0) 11/30/17 19:05 Plt Count 234 10^3/uL (130-450) 11/30/17 19:05 MPV 8.1 fL (7.4-11.4) 11/30/17 19:05 Neut # (Auto) 5.3 10^3/uL (1.5-6.6) 11/30/17 19:05 Lymph # (Auto) 1.6 10^3/uL (1.5-3.5) 11/30/17 19:05 [place] # (Auto) 0.9 10^3/uL (0.0-1.0) 11/30/17 19:05 Eos # (Auto) 0.1 10^3/uL (0.0-0.7) 11/30/17 19:05 Baso # (Auto) 0.0 10^3/uL (0.0-0.1) 11/30/17 19:05 Absolute Nucleated RBC 0.00 x10^3/uL 11/30/17 19:05 Nucleated RBC % 0.0 /100WBC 11/30/17 19:05 Sodium 136 mmol/L (135-145) 11/30/17 19:05 Potassium 3.6 mmol/L (3.5-5.0) 11/30/17 19:05 Chloride 101 mmol/L (101-111) 11/30/17 19:05 Carbon Dioxide 27 mmol/L (21-32) 11/30/17 19:05 Anion Gap 8.0 (6-13) 11/30/17 19:05 BUN 22 mg/dL (6-20) H 11/30/17 19:05 Creatinine 1.0 mg/dL (0.6-1.2) 11/30/17 19:05 Estimated GFR (MDRD) 72 (>89) L 11/30/17 19:05 Glucose 114 mg/dL (70-100) H 11/30/17 19:05 Calcium 9.4 mg/dL (8.5-10.3) 11/30/17 19:05 Total Bilirubin 0.7 mg/dL (0.2-1.0) 11/30/17 19:05 AST 23 IU/L (10-42) 11/30/17 19:05 ALT 26 IU/L (10-60) 11/30/17 19:05 Alkaline Phosphatase 68 IU/L (42-121) 11/30/17 19:05 Troponin I < 0.04 ng/mL (<0.49) 11/30/17 19:05 Total Protein 7.4 g/dL (6.7-8.2) 11/30/17 19:05 Albumin 4.2 g/dL (3.2-5.5) 11/30/17 19:05 Globulin 3.2 g/dL (2.1-4.2) 11/30/17 19:05 Albumin/Globulin Ratio 1.3 (1.0-2.2) 11/30/17 19:05 Lipase 29 U/L (22-51) 11/30/17 19:05 - Diagnostic Imaging Results Diagnostic Imaging Results: positive: Final report reviewed Diagnostic Imaging Results Comments: Chest x-ray Impression: 1. Normal single view chest - EKG Results EKG Interpreted Independently: Yes EKG Findings: Normal sinus rhythm with LVH but no ST elevations Core Measures - Anticipated LOS I expect patient to be DC'd or transferred within 96 hours.: Yes - DVT/VTE - Prophylaxis VTE/DVT Prophylaxis med ordered at admit?: Yes
[2017-11-30] MEDS: SODIUM CHLORIDE FLUSH 0.9% 10 ML SYRINGE IVP SCH (23:47)
[2017-12-01 06:50] LABS: BASOPHILS % (AUTO) 0.3 %; EOSINOPHILS # (AUTO) 0.1 10^3/uL (0.0-0.7); EOSINOPHILS % (AUTO) 1.9 %; HGB - HEMOGLOBIN 12.7 g/dL (14.0-18.0); LYMPHOCYTES # (AUTO) 1.3 10^3/uL (1.5-3.5); LYMPHOCYTES % (AUTO) 22.5 %; MEAN CORPUSCULAR HEMOGLOBIN 33.4 pg (27.0-31.0); MEAN CORPUSCULAR HGB CONC 34.2 g/dL (32.0-36.0); MEAN CORPUSCULAR VOLUME 97.5 fL (80.0-94.0); MONOCYTES # (AUTO) 0.7 10^3/uL (0.0-1.0); MONOCYTES % (AUTO) 12.8 %; NEUTROPHILS # (AUTO) 3.5 10^3/uL (1.5-6.6); NEUTROPHILS % (AUTO) 62.5 %; PLT - PLATELET COUNT 195 10^3/uL (130-450); RED CELL DISTRIBUTION WIDTH 13.1 % (12.0-15.0); WHITE BLOOD COUNT 5.6 x10^3/uL (4.8-10.8)
[2017-12-01] MEDS ORDERED: LEVOTHYROXINE 75 MCG TABLET PO SCH (07:00)
[2017-12-01 07:05] LABS: ALBUMIN 3.1 g/dL (3.2-5.5); ALBUMIN/GLOBULIN RATIO 1.1 (1.0-2.2); ALKALINE PHOSPHATASE 54 IU/L (42-121); ALT ALANINE AMINOTRANSFERASE 20 IU/L (10-60); AST ASPARTATE AMINOTRANSFERASE 20 IU/L (10-42); BUN - BLOOD UREA NITROGEN 20 mg/dL (6-20); CALCIUM 8.3 mg/dL (8.5-10.3); CARBON DIOXIDE - CO2 26 mmol/L (21-32); CHLORIDE 103 mmol/L (101-111); CHOL/HDL RATIO 3.1 (<5.0); CHOLESTEROL 120 mg/dL; CREATININE 1.1 mg/dL (0.6-1.2); GFR - MDRD 64 (>89); GLUCOSE 100 mg/dL (70-100); HDL CHOLESTEROL 39 mg/dL; LDL CHOLESTEROL,CALCULATED 68 mg/dL; LDL/HDL RATIO 1.7 (<3.6); SODIUM 136 mmol/L (135-145); TOTAL PROTEIN 5.9 g/dL (6.7-8.2); VLDL CHOLESTEROL 13 mg/dL
[2017-12-01] MEDS ORDERED: hydroCHLOROthiazide 12.5 MG CAPSULE PO SCH (09:00)
[2017-12-01] MEDS ORDERED: ASPIRIN EC 81 MG TABLET PO SCH (09:00)
[2017-12-01] MEDS ORDERED: ENOXAPARIN 40 MG/0.4 ML SYRINGE SUBQ SCH (09:00)
[2017-12-01] MEDS ORDERED: POLYETHYLENE GLYCOL 3350 17 GM PACKET PO SCH (09:00)
[2017-12-01] MEDS ORDERED: MULTIVITAMIN TABLET PO SCH (09:00)
[2017-12-01] MEDS ORDERED: FAMOTIDINE 20 MG TABLET PO SCH (09:00)
[2017-12-01] MEDS: METOPROLOL TARTRATE 25 MG TABLET PO SCH (09:27)
[2017-12-01] MEDS: SODIUM CHLORIDE FLUSH 0.9% 10 ML SYRINGE IVP SCH (09:28)
--- NOTE | 2017-12-01 13:55 | Discharge Plan ---
Discharge Plan Disposition: 01 Home, Self Care Condition: Good Prescriptions: Levothyroxine [Synthroid] 50 mcg PO QDAC #60 tablet Sucralfate [Carafate] 1 gm PO TID #90 ml Diet: Regular Activity Restrictions: No Restrictions Shower Restrictions: No Driving Restrictions: No Weight Bearing: Full Weight Additional Instructions or Follow Up instructions: You came to the hospital with chest pain and were ruled out for a heart attack. You were found to have an abnormal TSH at 0.08. This means that you are taking a little too much levothyroxine. We were unable to verify the dose, so just reduce the amount by 25 mcg daily. A repeat TSH test should be completed in the next 4-6 weeks. You described your symptoms that appear to be reflux in nature. You should continue the omeprazole at home and I have sent you another prescription for Carafate, which will give your stomach a coating, and to prevent this reflux. You should see your PCP within one week. I suggest further testing and a referral to a GI specialist to get you feeling better. No Smoking: If you smoke, Please STOP! Call for help. Follow-up with: Elicia Melgar MD [Primary Care Provider] -
[2017-12-01 14:16] VITALS: BP 128/80
--- NOTE | 2017-12-01 19:57 | DISCHARGE SUMMARY ---
Discharge Summary Admit Date: 11/30/17 Discharge Date: 12/01/17 Discharging Provider: TRE Arrieta Primary Care Provider: Elicia Melgar Code Status: Attempt Resuscitation Condition at Discharge: Good Discharge Disposition: 01 Home, Self Care - DIAGNOSES Admission Diagnoses: Chest pain, unspecified (R07.9) Essential (primary) hypertension (I10) Hypothyroidism, unspecified (E03.9) Discharge Diagnoses with Status of Each Condition: GERD (gastroesophageal reflux disease) (K21.9) -chronic, new medication prescribed, and suggest follow up with GI. Chest pain (R07.9) -resolved, cardiac causes ruled out. Hypertension (I10) -chronic, stable. Hypothyroidism (E03.9) -TSH level required a dose adjustment. Elevated TSH (R79.89) new on this admit, adjustment made. - HPI History of Present Illness: HPI per Dr. Borrego: Rei Quezada is a 82-year-old gentleman with a past medical history significant for mild cognitive impairment, hypertension, macular degeneration and hypothyroidism who presented to the emergency department with a chief complaint of chest pain. The patient states that he spent yesterday morning rearranging his bed and doing some chores around the house. He states while he was doing this he noticed that when he was reaching across with his right arm he would get pain in the right side of his chest. He states that he has never had pain like this before. He denies any associated shortness of air, palpitations, nausea or diaphoresis. He states he thought it was probably just a muscle strain. However the pain continued to occur off and on through the day. He states this morning he continued to have chest pain and it was occurring with and without movement. He states it became more persistent throughout the day. He states that it was now located in the center of the chest and seemed to radiate up to his left shoulder. He states that him and his girlfriend watched a movie this afternoon and he could not get comfortable as he continued to have this discomfort in his chest. The patient's girlfriend became concerned and convinced him to come to the emergency department. The patient denies any cough, fevers or chills. Patient denies any headaches, blurred vision, runny nose, sore throat, nasal congestion, difficulty swallowing, abdominal pain, diarrhea, constipation, urinary urgency, urinary frequency, dysuria, increased lower extremity swelling , orthopnea, PND, joint pain, muscle aches, joint swelling, back pain, neck stiffness, hair loss, skin changes, recent unintentional weight loss or weight gain, changes in his appetite or any focal neurologic deficits. On presentation to the emergency department the patient was afebrile and slightly hypertensive but otherwise was not in any respiratory distress. The patient underwent routine lab work which was all within normal limits. The patient had a troponin that was less than 0.04. The patient's EKG showed normal sinus rhythm with normal ST segments and some left ventricular hypertrophy. The patient also had a chest x-ray in the emergency department that was normal. Given the patient's age and risk factor of hypertension with a somewhat atypical presentation for chest pain the patient was placed in observation for further monitoring and rule out of acute coronary syndrome with serial troponins. - HOSPITAL COURSE Hospital Course: The following diagnoses were prevalent during this hospital stay: (1) Chest pain The patient presented to the ED with chest pain which started yesterday after he did some work around the house and noticed during a movie that he and a friend attended. This occurred half way through the movie while the patient was at rest. Patient noticed the chest pain with certain movements and likewise relieved with other movements. It then became more persistent and was bothering him at rest and seem exacerbated by drinking cold water. The patient has risk factors including, hyperlipidemia, hypertension and advanced age. He states that he did have one episode of chest pain many years ago for which he did have an angiogram that was negative for a heart attack. This chest pain presentation seems to be very atypical and favors a musculoskeletal type chest pain given the unclear triggers, and timing of events. However, given the patient's age and risk factors he was placed in observation for serial troponins , echocardiogram, etc. The patient denied any GI procedures while at the hospital, and agreed to explore this out patient with his PCP referral. Serial troponins x3 were all normal at 0.04. The patient was monitored on telemetry which showed no concerning heart arrhythmias or ectopy. Nitroglycerin was prescribed, but not necessary for chest pain. He was prescribed ASA, Lipitor, and continued on his PPI. An echocardiogram was completed and showed A lipid profile (2) Hypertension-essential The patient has a history of hypertension blood pressure is mildly elevated on presentation. The patient does take metoprolol at home for hypertension. We will continue his home dose of metoprolol and monitor his blood pressure and titrate medication if needed. (3) Hypothyroidism-acquired The patient has a history of hypothyroidism. He takes Synthroid at home. He currently does not appear to have any symptoms of hypothyroidism and appears stable. We will continue his Synthroid and check his TSH in the morning. Disposition: The patient was anxious to be on his way with a "family friend" who may have been portrayed as acting more like a significant other by several nursing staff and the medical team. He was agreeable to seeking prompt medical follow up and returning to the ED for unresolved further chest pain. - ALLERGIES Allergies/Adverse Reactions: Allergies Allergy/AdvReac Type Severity Reaction Status Date / Time No Known Drug Allergies Allergy Verified 11/30/17 20:28 - MEDICATIONS Home Medications: Ambulatory Orders Medication Instructions Recorded Confirmed Levothyroxine [Synthroid] 150 mcg PO QDAC 07/05/13 12/01/17 Lutein Extract/Zeaxanthin Ext 1 each PO DAILY 07/05/13 12/01/17 [Lutein 15 mg Softgel] Metoprolol Tartrate [Lopressor] 50 mg PO BID 07/05/13 12/01/17 Multivitamin [Multi-Vitamin Daily] 1 each PO DAILY 07/05/13 12/01/17 [place]-3 Fatty Acids/Fish Oil [Fish 1 each PO DAILY 07/05/13 12/01/17 Oil 1,000 mg Capsule] hydroCHLOROthiazide 12.5 mg PO BID 07/05/13 12/01/17 [Hydrochlorothiazide] Levothyroxine [Synthroid] 50 mcg PO QDAC #60 tablet 12/01/17 Lisinopril [Prinivil] 5 mg PO BID 12/01/17 12/01/17 Omeprazole [PriLOSEC] 20 mg PO BID 12/01/17 12/01/17 Simvastatin [Zocor] 20 mg PO QPM 12/01/17 12/01/17 Sucralfate [Carafate] 1 gm PO TID #90 ml 12/01/17 Triazolam 0.125 - 0.25 mg PO QPM PRN 12/01/17 12/01/17 - PHYSICAL EXAM AT DISCHARGE General Appearance: positive: No acute distress, Alert Eyes Bilateral: positive: Normal inspection, PERRL ENT: positive: ENT inspection nml, Pharynx nml, No signs of dehydration Neck: positive: Nml inspection, Thyroid nml, No JVD, Trachea midline Respiratory: positive: Chest non-tender, No respiratory distress Cardiovascular: positive: Regular rate & rhythm, Systolic murmur Peripheral Pulses: positive: 2+ Abdomen: positive: Non-tender, Nml bowel sounds Back: positive: Nml inspection Skin: positive: No rash, Warm, Dry Extremities: positive: Non-tender, Full ROM, Nml appearance Neurologic/Psychiatric: positive: Oriented x3, CN's nml (2-12), Motor nml, Sensation nml, Mood/affect nml Reflexes: Bicep (R): 3+, Bicep (L): 3+ - LABS Result Diagrams: 12/01/17 06:08 12/01/17 06:08 - DIAGNOSTIC IMAGING Diagnostic Imaging Results: Final report reviewed Diagnostic Imaging Results Comments: Chest x-ray: IMPRESSION: Normal single view chest. Echocardiogram final results pending. Preliminary results with no concerning findings. - FOLLOW UP Follow Up: Disposition: Home, Self Care Condition: Good Prescriptions: Levothyroxine [Synthroid] 50 mcg PO QDAC #60 tablet Sucralfate [Carafate] 1 gm PO TID #90 ml Diet: Regular Activity Restrictions: No Restrictions Shower Restrictions: No Driving Restrictions: No Weight Bearing: Full Weight Additional Instructions or Follow Up instructions: You came to the hospital with chest pain and were ruled out for a heart attack. You were found to have an abnormal TSH at 0.08. This means that you are taking a little too much levothyroxine. We were unable to verify the dose, so just reduce the amount by 25 mcg daily. A repeat TSH test should be completed in the next 4-6 weeks. You described your symptoms that appear to be reflux in nature. You should continue the omeprazole at home and I have sent you another prescription for Carafate, which will give your stomach a coating, and to prevent this reflux. You should see your PCP within one week. I suggest further testing and a referral to a GI specialist to get you feeling better. - TIME SPENT Time Spent in Discharge (Minutes): 45
== END 2017-12-01 14:51 | disposition home or self-care (01) ==
LOC: ED 18:54 → OBS 20:48
PROVIDERS: ADMIT Internal Medicine; ATTEND Nurse Practitioner
DX: K21.9 Gastro-esophageal reflux disease without esophagitis (principal); I10 Essential (primary) hypertension; E03.9 Hypothyroidism, unspecified; R79.89 Other specified abnormal findings of blood chemistry; G31.84 Mild cognitive impairment of uncertain or unknown etiology; H35.30 Unspecified macular degeneration; Z96.659 Presence of unspecified artificial knee joint; M19.90 Unspecified osteoarthritis, unspecified site; Z87.891 Personal history of nicotine dependence; Z79.899 Other long term (current) drug therapy
CPT/HCPCS: 36415; 71045; 80053; 80061; 83690; 83880; 84443; 84484; 85025; 93306; 96361; 96372; 96374; 99283; 99284; A9270; G0378; J1650; J2270; 83721

== ENCOUNTER 2017-12-13 16:35 | Observation (INO) | payer MEDICARE ==
[2017-12-13 16:57] LABS: BASOPHILS # (AUTO) 0.1 10^3/uL (0.0-0.1); BASOPHILS % (AUTO) 0.5 %; EOSINOPHILS # (AUTO) 0.1 10^3/uL (0.0-0.7); EOSINOPHILS % (AUTO) 0.8 %; HGB - HEMOGLOBIN 15.7 g/dL (14.0-18.0); LYMPHOCYTES # (AUTO) 1.3 10^3/uL (1.5-3.5); LYMPHOCYTES % (AUTO) 11.3 %; MEAN CORPUSCULAR HEMOGLOBIN 32.6 pg (27.0-31.0); MEAN CORPUSCULAR HGB CONC 33.7 g/dL (32.0-36.0); MEAN CORPUSCULAR VOLUME 96.9 fL (80.0-94.0); MEAN PLATELET VOLUME 7.4 fL (7.4-11.4); MONOCYTES # (AUTO) 0.8 10^3/uL (0.0-1.0); NEUTROPHILS # (AUTO) 9.3 10^3/uL (1.5-6.6); NEUTROPHILS % (AUTO) 80.4 %; PLT - PLATELET COUNT 357 10^3/uL (130-450); RED BLOOD COUNT 4.83 10^6/uL (4.70-6.10); RED CELL DISTRIBUTION WIDTH 13.2 % (12.0-15.0); WHITE BLOOD COUNT 11.6 x10^3/uL (4.8-10.8)
[2017-12-13] MEDS ORDERED: SODIUM CHLORIDE 0.9% 1,000 ML IV ONE (16:59)
[2017-12-13] MEDS ORDERED: ONDANSETRON 4 MG/2 ML VIAL IVP STA (16:59)
--- NOTE | 2017-12-13 17:06 | ED Physician Documentation ---
PD HPI ABD PAIN - Stated complaint Stated Complaint: ABD PX/WEAKNESS - Chief complaint Chief Complaint: Abd Pain - History obtained from History obtained from: Patient, Family () - History of Present Illness Timing - onset: Today (Recent admit for chest pain, he ruled out. Today midday he started developed diffuse abdominal pain with burpiness and nausea but no vomiting. He said he had a small but otherwise normal bowel movement today. He has no abdominal surgeries. He feels fatigued. His notes that he actually had a routine visit with his physician today and he was noted to be somewhat hypotensive, 97/56 she thinks and he was taken off of his antihypertensives except for a half dose of metoprolol.) Review of Systems Ten Systems: 10 systems reviewed and negative Constitutional: reports: Fatigue. denies: Fever, Chills Cardiac: denies: Chest pain / pressure, Palpitations Respiratory: denies: Dyspnea, Cough GI: reports: Abdominal Pain, Nausea. denies: Vomiting, Constipation, Diarrhea, Hematemesis, Bloody / black stool PD PAST MEDICAL HISTORY - Past Medical History Cardiovascular: Hypertension Respiratory: None Endocrine/Autoimmune: HyPOthyroidism, Other GI: None : Retention HEENT: None Psych: None Musculoskeletal: Osteoarthritis, Other Derm: None - Past Surgical History Past Surgical History: Yes Ortho: Knee replacement, Spine surgery - Present Medications Home Medications: Ambulatory Orders Medication Instructions Recorded Confirmed Metoprolol Tartrate [Lopressor] 25 mg PO BID 07/05/13 12/13/17 Multivitamin [Multi-Vitamin Daily] 1 each PO DAILY 07/05/13 12/13/17 Levothyroxine [Synthroid] 50 mcg PO QDAC #60 tablet 12/01/17 12/13/17 Omeprazole [PriLOSEC] 20 mg PO BID 12/01/17 12/13/17 Triazolam 0.125 - 0.25 mg PO QPM PRN 12/01/17 12/13/17 - Allergies Allergies/Adverse Reactions: Allergies Allergy/AdvReac Type Severity Reaction Status Date / Time No Known Drug Allergies Allergy Verified 12/13/17 16:44 - Social History Does the pt smoke?: No Smoking Status: Former smoker Does the pt drink ETOH?: No Does the pt have substance abuse?: No - Family History Family history: reports: Non contributory - Immunizations Immunizations are current?: Yes - POLST Patient has POLST: No POLST Status: Full Code PD ED PE NORMAL - Vitals Vital signs reviewed: Yes - General General: Alert and oriented X 3 (But he is a very vague historian and seems to have some short-term memory difficulties.) - HEENT HEENT: PERRL, EOMI - Neck Neck: Supple, no meningeal sign, No bony TTP - Cardiac Cardiac: RRR, No murmur - Respiratory Respiratory: No respiratory distress, Clear bilaterally - Abdomen Abdomen: Other (Diminished but not absent bowel tones, mild upper abdominal tenderness without surgical signs.) - Back Back: No CVA TTP, No spinal TTP - Derm Derm: Normal color, Warm and dry - Extremities Extremities: No edema, No calf tenderness / cord - Neuro Neuro: Alert and oriented X 3, 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, Normal speech - Psych Psych: Normal mood, Normal affect Results - Vitals Vitals: Vital Signs - 24 hr 12/13/17 12/13/17 16:42 19:30 Temperature 36.7 C Heart Rate 114 H 84 Respiratory 15 18 Rate Blood Pressure 110/74 115/79 O2 Saturation 97 98 Oxygen O2 Source [With Activity] Room air O2 Source [Without Activity] Room air O2 Source Room air - EKG (time done) 1817 Rate: Rate (enter#) (82) Rhythm: NSR [place]: Normal Intervals: Normal IA QRS: LVH Ischemia: Normal ST segments Computer interpretation: Agree with computer - Labs Labs: Laboratory Tests 12/13/17 12/13/17 12/13/17 16:55 16:55 16:55 WBC 11.6 H RBC 4.83 Hgb 15.7 Hct 46.8 MCV 96.9 H MCH 32.6 H MCHC 33.7 RDW 13.2 Plt Count 357 MPV 7.4 Neut # (Auto) 9.3 H Lymph # (Auto) 1.3 L [place] # (Auto) 0.8 Eos # (Auto) 0.1 Baso # (Auto) 0.1 Absolute Nucleated RBC 0.00 Nucleated RBC % 0.0 Sodium 136 Potassium 4.2 Chloride 99 L Carbon Dioxide 27 Anion Gap 10.0 BUN 21 H Creatinine 1.1 Estimated GFR (MDRD) 64 L Glucose 131 H Lactic Acid Calcium 9.1 Total Bilirubin 0.9 AST 21 ALT 26 Alkaline Phosphatase 65 Troponin I < 0.04 Total Protein 7.3 Albumin 3.7 Globulin 3.6 Albumin/Globulin Ratio 1.0 Lipase 26 12/13/17 18:32 WBC RBC Hgb Hct MCV MCH MCHC RDW Plt Count MPV Neut # (Auto) Lymph # (Auto) [place] # (Auto) Eos # (Auto) Baso # (Auto) Absolute Nucleated RBC Nucleated RBC % Sodium Potassium Chloride Carbon Dioxide Anion Gap BUN Creatinine Estimated GFR (MDRD) Glucose Lactic Acid 1.1 Calcium Total Bilirubin AST ALT Alkaline Phosphatase Troponin I Total Protein Albumin Globulin Albumin/Globulin Ratio Lipase - Rads (name of study) CT A/P Radiology: EMP read contemporaneously (Small amount of ascites and extensive wall thickening of the mid and distal small bowel consistent with an enteritis and could be infectious, inflammatory, or ischemic. No free air. 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 He is noted to have a little bit of pedal edema and diminished bowel tones. He has modest white count. I spoke with the on-call surgeon, Neo Elise, at 1820 after the results of his CT, who recommend checking a lactate, if normal he will be placed on medicine for serial exams and consideration for an echocardiogram to evaluate him for right-sided heart failure as that may also cause the ascites and inflamed-looking bowel loops. Spoke with Dr Evans for observation at 7:45 PM. - Sepsis Event Vital Signs: Vital Signs - 24 hr 12/13/17 12/13/17 16:42 19:30 Temperature 36.7 C Heart Rate 114 H 84 Respiratory 15 18 Rate Blood Pressure 110/74 115/79 O2 Saturation 97 98 Oxygen O2 Source [With Activity] Room air O2 Source [Without Activity] Room air O2 Source Room air Departure - Departure Disposition: ED Place in Observation Discharge Date/Time: 12/13/17 20:32
[2017-12-13 17:10] LABS: ALBUMIN 3.7 g/dL (3.2-5.5); BILIRUBIN,TOTAL 0.9 mg/dL (0.2-1.0); CALCIUM 9.1 mg/dL (8.5-10.3); CREATININE 1.1 mg/dL (0.6-1.2); TOTAL PROTEIN 7.3 g/dL (6.7-8.2)
[2017-12-13] MEDS ORDERED: IOPAMIDOL-300 100 ML VIAL ONE (17:30)
[2017-12-13] MEDS ORDERED: IOPAMIDOL-300 100 ML VIAL IVP ONE (17:47)
--- NOTE | 2017-12-13 18:12 | CT Report ---
Procedure Date: 12/13/2017 Accession Number: [id number] / [id number] Procedure: CT - Abdomen/Pelvis W/ CPT Code: FULL RESULT: EXAM: CT ABDOMEN AND PELVIS EXAM DATE: 12/13/2017 05:45 PM. CLINICAL HISTORY: IV only, diffuse abd pain. COMPARISONS: None. TECHNIQUE: Routine helical CT imaging was performed through the abdomen and pelvis. IV contrast: 100 ML ISOVUE 300. Enteric contrast: No. Reconstructions: Coronal and sagittal. In accordance with CT protocol optimization, one or more of the following dose reduction techniques were utilized for this exam: automated exposure control, adjustment of mA and/or KV based on patient size, or use of iterative reconstructive technique. FINDINGS: Lung Bases: Unremarkable. Liver: Circumscribed 1.6 cm hypoattenuating right liver lesion is likely a cyst. Liver dome is incompletely imaged. Gallbladder/Bile Ducts: Unremarkable. Spleen: Normal. Pancreas: Normal. Adrenal Glands: Normal. Kidneys: No hydronephrosis. Probable 1.7 cm left renal parapelvic cyst. Peritoneal Cavity/Bowel: Extensive wall thickening of mid and distal small bowel with adjacent mesenteric inflammation. No evidence of obstruction. No colonic wall thickening. There is sigmoid diverticulosis without evidence of acute diverticulitis. Small amount of ascites. No abscess, pneumatosis or free air. Pelvic Organs: Urinary bladder and prostate gland are unremarkable. Vasculature: Mild aortic atherosclerosis. Noncalcified plaque in the proximal superior mesenteric artery causes at least 50% luminal stenosis. No occlusion. No aneurysm. Bones: Moderate to severe degenerative changes in the spine. Grade 1 anterolisthesis of L3 on L4 and L4 on L5. Mild scoliosis of the lumbar spine. Other: None. IMPRESSION: 1. Extensive wall thickening of mid and distal small bowel loops is keeping with enteritis and could be infectious, inflammatory or ischemic. Small amount of ascites. No abscess, pneumatosis or free air. 2. 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 3. Diverticulosis without evidence of acute diverticulitis. RADIA
[2017-12-13] MEDS ORDERED: MORPHINE 2 MG/ML SYRINGE IVP STA (18:20)
[2017-12-13] MEDS ORDERED: ONDANSETRON ODT 4 MG TABLET TL PRN (19:46)
[2017-12-13] MEDS ORDERED: ACETAMINOPHEN 325 MG TABLET PO PRN (19:46)
[2017-12-13] MEDS ORDERED: SODIUM CHLORIDE FLUSH 0.9% 10 ML SYRINGE IVP PRN (19:46)
[2017-12-13] MEDS ORDERED: MORPHINE 2 MG/ML SYRINGE IVP PRN (19:46)
[2017-12-13] MEDS ORDERED: ONDANSETRON 4 MG/2 ML VIAL IVP PRN (19:46)
--- NOTE | 2017-12-13 19:55 | HISTORY & PHYSICAL EXAMINATION ---
Chief Complaint - Chief Complaint Chief Complaint: Generalized abdominal pain starting today History of Present Illness - Admitted From Admitted From:: Home/ER - History Obtained From Records Reviewed: Francois History obtained from: Patient, Francois, Dr. García Exam Limitations: Vague historian with mild to moderate cognitive deficit - History of Present Illness HPI Comment/Other: This devante gentleman lives in his own home in [place]. He does have a of 60 years (61 come March). He was just admitted November 30 for chest pain and had 3 serial enzyme studies as well as EKG which were negative. He and his girlfriend were told that he is on too many medications, and an effort to pare down his medications he went to see his primary care provider. He was seen today. Blood pressure was noted to be in the 90s. And all of his medications for blood pressure stopped except his metoprolol which was cut in half. In the mid day he developed some generalized abdominal pain. It is nonradiating. Part of the problem is his vague history. Sometimes he says is epigastric, sometimes he says lower abdomen. It is nonstop, unremitting. Not associated with food. Not made better by food. Movement or sitting does not change the nature of the pain. It is accompanied by nausea. There is no diarrhea. No change in the color of his stools. In the emergency room he has been afebrile. Blood pressure 110/74. He has hypoactive bowel sounds but they are still present. Mild tenderness with exam. CT the abdomen shows a segment of small bowel that is thickened and inflamed. His white cell count is elevated to 11,000. Dr. Marcos spoke to general surgery who would like the patient placed in observation with serial abdominal exams done. Lactic acid has been normal. History - Past Medical History Cardiovascular: reports: Hypertension Respiratory: reports: None Endocrine/Autoimmune: reports: HyPOthyroidism, Other GI: reports: None : reports: Benign prostate hypertrophy, Retention HEENT: reports: None Psych: reports: None Musculoskeletal: reports: Osteoarthritis, Other Derm: reports: None MRSA Hx?: No - Past Surgical History Ortho: reports: Knee replacement, Spine surgery - Family & Social History Family History: Mother: (Parents were healthy), Father: , Brother: Hypertension Living arrangement: At home Living Situation: With spouse/s.o. Social History Notes: The patient lives in his own home in [place] and has been living there for the last 20 years. He is originally from [place] but moved all throughout the country as he worked for [employer]. He decided to retire on [facility]. He states he is to his of close to 60 years ( but last month it was a girlfriend that was with him) and had 3 children 1 of whom has . The patient used to smoke a pipe but quit 20 years ago, he drinks wine daily and denies any illicit drug use. while most of this social history is endorsed by this patient, changing the spouse issue may be symptom of his memory loss. - Substance History Use: Uses substance without health or social issues: Alcohol Abuse: Recurrent use of substance despite neg consequences: NONE Dependence: Experiences withdrawal or developed tolerances: NONE - POLST Patient has POLST: No POLST Status: Full Code Meds/Allgy - Home Medications Home Medications: Ambulatory Orders Medication Instructions Recorded Confirmed Metoprolol Tartrate [Lopressor] 25 mg PO BID 07/05/13 12/13/17 Multivitamin [Multi-Vitamin Daily] 1 each PO DAILY 07/05/13 12/13/17 Levothyroxine [Synthroid] 50 mcg PO QDAC #60 tablet 12/01/17 12/13/17 Omeprazole [PriLOSEC] 20 mg PO BID 12/01/17 12/13/17 Triazolam 0.125 - 0.25 mg PO QPM PRN 12/01/17 12/13/17 - Allergies Allergies/Adverse Reactions: Allergies Allergy/AdvReac Type Severity Reaction Status Date / Time No Known Drug Allergies Allergy Verified 12/13/17 16:44 Review of Systems - Constitutional Constitutional: reports: Fatigue, Malaise, Poor appetite. denies: Fever, Chills , Weakness, Diaphoresis, Night sweats - Eyes Eyes: denies: Pain, Irritation, Amaurosis, Blurred vision - Ears, Nose & Throat Ears, Nose & Throat: reports: Hearing loss. denies: Ear pain, Tinnitus, Vertigo , Nasal obstruction, Nasal congestion, Postnasal drainage - Cardiovascular Cariovascular: denies: Irregular heart rate, Palpitations, Chest pain, Edema - Respiratory Respiratory: denies: Cough, Sputum production, Wheezing, SOB at rest, SOB with exertion - Gastrointestinal Gastrointestinal: reports: Abdominal pain (today but it's is not present at this time), Nausea. denies: Abdominal distention, Constipation, Diarrhea, Change in bowel habits, Black stools, Bloody stools, Vomiting - Genitourinary Genitourinary: reports: Frequency, Urgency, Nocturia. denies: Dysuria, Hematuria, Incontinence, Flank pain - Musculoskeletal Musculoskeletal: denies: Muscle pain, Back pain, Muscle aches, Stiffness, Gout, Joint pain - Integumentary Integumentary: denies: Rash, Pruritis, Lesions - Neurological Neurological: reports: Memory problems (he says it's just getting older). denies: General weakness, Focal weakness, Headache, Dizziness - Psychiatric Psychiatric: denies: Depression, Anxiety, Suicidal - Endocrine Endocrine: denies: Polyuria, Polydypsia, Polyphagia, Intolerance to cold - Hematologic/Lymphatic Hematologic/Lymphatic: denies: Anemia, Bruising, Petechiae Exam - Vital Signs Vital Signs: Vital Signs x48h Temp Pulse Resp BP Pulse Ox 12/13/17 16:42 36.7 C 114 H 15 110/74 97 - Physical Exam General Appearance: positive: No acute distress, Alert, Other (Tylenol elderly white male who looks his stated age and is comfortable in the bed, relaxed with his arms above his head, elbows bent, head resting on hands) Eyes Bilateral: positive: PERRL, EOMI ENT: positive: Pharynx nml, No signs of dehydration Neck: positive: No JVD. negative: Stiff neck, Carotid bruit Respiratory: positive: Chest non-tender. negative: Wheezes, Rales, Rhonchi Cardiovascular: positive: Regular rate & rhythm, Systolic murmur. negative: Gallop/S4, Friction rub Peripheral Pulses: positive: 1+ Abdomen: positive: Non-tender (At this time. He says all of his abdominal pain has resolved), No organomegaly, No distention, Abnml bowel sounds (Infrequent and hypoactive). negative: Guarding, Rebound, Hepatomegaly, Splenomegaly Skin: positive: Warm, Dry Extremities: positive: Non-tender, Full ROM, No pedal edema Neurologic/Psychiatric: positive: Oriented x3, CN's nml (2-12) (Except a little deaf), Motor nml, Sensation nml. negative: Slurred/abnml speech, Depressed mood /affect Conclusion/Plan - Problem List (1) Generalized continuous abdominal pain Conclusion/Plan: That was for the most part present for several hours. Was still present in the emergency room. Now upon transfer to the [facility] observation bed, no longer present. It is associated with an abnormal CT of the abdomen as well as elevated white cell count. Differential diagnosis for this distended segmented section of small bowel would include simple enteritis, ischemic bowel, Plan: Placed the patient in observation for serial abdominal exams Check CBC in the morning as well as sed rate and plain film of the abdomen General surgery has already stated they will consult on the patient but may not be seeing him at home tomorrow morning. If there is any change in his status I will call him tonight (2) Hyperglycemia Conclusion/Plan: No history of diabetes mellitus. May be due to stress reaction from acute illness. Will check A1c in the morning. - Lab Results Fish Bones: 12/14/17 05:45 12/14/17 05:45 Other Lab Results: Laboratory Tests 12/13/17 12/13/17 12/13/17 16:55 16:55 16:55 WBC 11.6 H Hgb 15.7 Hct 46.8 Plt Count 357 Sodium 136 Potassium 4.2 Chloride 99 L Carbon Dioxide 27 Anion Gap 10.0 BUN 21 H Creatinine 1.1 Glucose 131 H Lactic Acid Total Bilirubin 0.9 AST 21 ALT 26 Alkaline Phosphatase 65 Troponin I < 0.04 Lipase 26 12/13/17 18:32 WBC Hgb Hct Plt Count Sodium Potassium Chloride Carbon Dioxide Anion Gap BUN Creatinine Glucose Lactic Acid 1.1 Total Bilirubin AST ALT Alkaline Phosphatase Troponin I Lipase - Diagnostic Imaging Results Diagnostic Imaging Results: positive: Final report reviewed Core Measures - Anticipated LOS I expect patient to be DC'd or transferred within 96 hours.: Yes - DVT/VTE - Prophylaxis VTE/DVT Device ordered at admit?: Yes
[2017-12-13] MEDS ORDERED: METOPROLOL TARTRATE 25 MG TABLET PO SCH (21:00)
[2017-12-13] MEDS: SODIUM CHLORIDE 0.9% 1,000 ML IV SCH (21:26)
[2017-12-13] MEDS ORDERED: ZOLPIDEM 5 MG TABLET PO PRN (22:11)
[2017-12-14] MEDS ORDERED: SODIUM CHLORIDE FLUSH 0.9% 10 ML SYRINGE IVP SCH (01:00)
[2017-12-14 05:53] LABS: BASOPHILS % (AUTO) 0.6 %; EOSINOPHILS # (AUTO) 0.1 10^3/uL (0.0-0.7); EOSINOPHILS % (AUTO) 1.8 %; HGB - HEMOGLOBIN 12.9 g/dL (14.0-18.0); LYMPHOCYTES # (AUTO) 1.7 10^3/uL (1.5-3.5); LYMPHOCYTES % (AUTO) 22.8 %; MEAN CORPUSCULAR HEMOGLOBIN 32.4 pg (27.0-31.0); MEAN CORPUSCULAR HGB CONC 33.8 g/dL (32.0-36.0); MEAN CORPUSCULAR VOLUME 95.8 fL (80.0-94.0); MEAN PLATELET VOLUME 7.1 fL (7.4-11.4); MONOCYTES # (AUTO) 0.6 10^3/uL (0.0-1.0); MONOCYTES % (AUTO) 8.4 %; NEUTROPHILS # (AUTO) 4.9 10^3/uL (1.5-6.6); NEUTROPHILS % (AUTO) 66.4 %; PLT - PLATELET COUNT 285 10^3/uL (130-450); RED BLOOD COUNT 3.97 10^6/uL (4.70-6.10); WHITE BLOOD COUNT 7.4 x10^3/uL (4.8-10.8)
[2017-12-14 06:00] LABS: CALCIUM 7.9 mg/dL (8.5-10.3); CREATININE 1.2 mg/dL (0.6-1.2)
[2017-12-14] MEDS ORDERED: LEVOTHYROXINE 25 MCG TABLET PO SCH (07:00)
[2017-12-14 07:25] VITALS: BP 121/70
[2017-12-14] MEDS: SODIUM CHLORIDE 0.9% 1,000 ML IV SCH (08:37)
[2017-12-14] MEDS ORDERED: POLYETHYLENE GLYCOL 3350 17 GM PACKET PO SCH (09:00)
[2017-12-14 09:34] LABS: BILIRUBIN,URINE NEGATIVE (NEGATIVE); GLUCOSE, URINE (UA) NEGATIVE (NEGATIVE); KETONES,URINE (UA) TRACE mg/dL (NEGATIVE); LEUKOCYTE ESTERASE, URINE NEGATIVE (NEGATIVE); NITRITE,URINE NEGATIVE (NEGATIVE); OCCULT BLOOD,URINE NEGATIVE (NEGATIVE); PROTEIN,URINE NEGATIVE (NEGATIVE); UROBILINOGEN,URINE 0.2 (NORMAL) E.U./dL (NORMAL)
[2017-12-14 09:37] LABS: CLARITY,URINE CLEAR (CLEAR)
--- NOTE | 2017-12-14 12:07 | XRAY Report ---
Procedure Date: 12/14/2017 Accession Number: [id number] / [id number] Procedure: XR - Abdomen 2 View X-Ray CPT Code: 40622 FULL RESULT: EXAM: Abdomen 2 View X-Ray DATE: 12/14/2017 9:11 AM CLINICAL HISTORY: followup of abnml CT abd 12/13 COMPARISON: CT abdomen and pelvis 12/13/2017. TECHNIQUE: 2 views. FINDINGS: Lung Bases: Unremarkable. Bowel Gas Pattern: Dilated small bowel loops in the midabdomen measuring up to 3.9 cm in a nonobstructed configuration. Free Air: None. Other: None. IMPRESSION: Small bowel gaseous dilation up to 3.9 cm. Nonobstructed bowel gas pattern. Given CT findings 12/13/2017 and this is compatible with ongoing small bowel inflammation. RADIA
--- NOTE | 2017-12-14 14:23 | Discharge Plan ---
Discharge Plan Disposition: 01 Home, Self Care Condition: Stable Diet: Regular Activity Restrictions: Activity as Tolerated Shower Restrictions: No (fall precaution) Additional Instructions or Follow Up instructions: You may follow up your PCP in one week. Should your symptoms return or worsen, you may present ER or call 911 for help No Smoking: If you smoke, Please STOP! Call for help. Follow-up with: Elicia Melgar MD [Primary Care Provider] -
--- NOTE | 2017-12-14 14:24 | DISCHARGE SUMMARY ---
Discharge Summary Discharge Date: 12/14/17 Discharging Provider: GUERRA Primary Care Provider: Dr. Melgar Condition at Discharge: Stable Discharge Disposition: 01 Home, Self Care Discharge Facility Name: home - DIAGNOSES Admission Diagnoses: (1) Generalized continuous abdominal pain (2) Hyperglycemia Discharge Diagnoses with Status of Each Condition: (1) Generalized continuous abdominal pain pt does not have any abdominal pain. it is normal to pt. No nausea, vomiting, diarrhea. pt tolerate the diet. Pt strongly request to be d/c today. Xray reveals no SBO, with inflamed bowel. I called Dr. Gene Elise, moving consultant. Dr. Elise agree d/c pt. (2) Hyperglycemia resolved. - HPI History of Present Illness: refer from Dr. Evans's HPI for pt as the following: This devante gentleman lives in his own home in [place]. He does have a of 60 years (61 come March). He was just admitted November 30 for chest pain and had 3 serial enzyme studies as well as EKG which were negative. He and his girlfriend were told that he is on too many medications, and an effort to pare down his medications he went to see his primary care provider. He was seen today. Blood pressure was noted to be in the 90s. And all of his medications for blood pressure stopped except his metoprolol which was cut in half. In the mid day he developed some generalized abdominal pain. It is nonradiating. Part of the problem is his vague history. Sometimes he says is epigastric, sometimes he says lower abdomen. It is nonstop, unremitting. Not associated with food. Not made better by food. Movement or sitting does not change the nature of the pain. It is accompanied by nausea. There is no diarrhea. No change in the color of his stools. In the emergency room he has been afebrile. Blood pressure 110/74. He has hypoactive bowel sounds but they are still present. Mild tenderness with exam. CT the abdomen shows a segment of small bowel that is thickened and inflamed. His white cell count is elevated to 11,000. Dr. Marcos spoke to general surgery who would like the patient placed in observation with serial abdominal exams done. Lactic acid has been normal. - ALLERGIES Allergies/Adverse Reactions: Allergies Allergy/AdvReac Type Severity Reaction Status Date / Time No Known Drug Allergies Allergy Verified 12/13/17 16:44 - MEDICATIONS Home Medications: Ambulatory Orders Medication Instructions Recorded Confirmed Metoprolol Tartrate [Lopressor] 25 mg PO BID 07/05/13 12/13/17 Multivitamin [Multi-Vitamin Daily] 1 each PO DAILY 07/05/13 12/13/17 Levothyroxine [Synthroid] 50 mcg PO QDAC #60 tablet 12/01/17 12/13/17 Omeprazole [PriLOSEC] 20 mg PO BID 12/01/17 12/13/17 Triazolam 0.125 - 0.25 mg PO QPM PRN 12/01/17 12/13/17 - PHYSICAL EXAM AT DISCHARGE General Appearance: positive: No acute distress, Alert. negative: Lethargic Eyes Bilateral: positive: Normal inspection, PERRL, No lid inflammation, Conjunctivae nml ENT: positive: ENT inspection nml, Pharynx nml, No signs of dehydration. negative: Purulent nasal drainage, Pharyngeal erythema, Oral lesions Neck: positive: Nml inspection, Thyroid nml, No JVD, Trachea midline. negative : Thyromegaly, Lymphadenopathy (R), Lymphadenopathy (L), Stiff neck, Carotid bruit, Swelling/bruising, Tracheal deviation Respiratory: positive: Chest non-tender, No respiratory distress, Breath sounds nml. negative: Wheezes, Rales, Rhonchi Cardiovascular: positive: Regular rate & rhythm, No murmur, No gallop. negative : Irregularly irregular, Extrasystoles, Tachycardia, Bradycardia, JVD present, Systolic murmur, Diastolic murmur Peripheral Pulses: positive: 2+ Abdomen: positive: Non-tender, No organomegaly, Nml bowel sounds, No distention. negative: Tenderness, Guarding, Rebound Back: positive: Nml inspection. negative: CVA tenderness (R), CVA tenderness (L ) Skin: positive: Color nml, No rash, Warm, Dry. negative: Cyanosis, Diaphoresis , Pallor Extremities: positive: Non-tender, Full ROM, Nml appearance. negative: Calf tenderness, Joint swelling, Matheus's sign/cords Neurologic/Psychiatric: positive: Oriented x3, Motor nml, Sensation nml, Mood/ affect nml. negative: Weakness, Sensory loss, Facial droop, Slurred/abnml speech, Depressed mood/affect - LABS Result Diagrams: 12/14/17 05:45 07/13/18 05:45 - FOLLOW UP Follow Up: You may follow up your PCP in one week. Should your symptoms return or worsen, you may present ER or call 911 for help - TIME SPENT Time Spent in Discharge (Minutes): 40
== END 2017-12-14 14:48 | disposition home or self-care (01) ==
LOC: ED 16:35 → OBS 19:46
PROVIDERS: ADMIT Specialist; ATTEND Nurse Practitioner Gerontology
DX: K50.00 Crohn's disease of small intestine without complications (principal); R73.9 Hyperglycemia, unspecified; I10 Essential (primary) hypertension; E03.9 Hypothyroidism, unspecified; N40.1 Benign prostatic hyperplasia with lower urinary tract symptoms; K57.30 Diverticulosis of large intestine without perforation or abscess without bleeding; R33.8 Other retention of urine; R35.0 Frequency of micturition; R35.1 Nocturia; M19.90 Unspecified osteoarthritis, unspecified site; H91.90 Unspecified hearing loss, unspecified ear; R39.15 Urgency of urination; Z79.899 Other long term (current) drug therapy; Z87.891 Personal history of nicotine dependence
CPT/HCPCS: 36415; 74019; 74177; 80048; 80053; 81003; 83605; 83690; 84484; 85025; 85651; 93005; 96361; 96374; 96375; 99283; 99285; A9270; G0378; J2270; Q9967; 81001; 87086; 99284

== ENCOUNTER 2018-03-08 10:27 | Outpatient (CLI) | payer MEDICARE ==
--- NOTE | 2018-03-08 16:10 | XRAY Report ---
Reason: RIB SPRAIN Procedure Date: 03/08/2018 Accession Number: [id number] / [id number] Procedure: XR - Chest 2 View X-Ray CPT Code: 02409 FULL RESULT: EXAM: CHEST RADIOGRAPHY EXAM DATE: 03/08/2018 11:35 AM. CLINICAL HISTORY: Rib sprain. COMPARISON: CHEST 1 VIEW 11/30/2017 7:49 PM. TECHNIQUE: 2 views. FINDINGS: Lungs/Pleura: Linear platelike densities projecting over the left heart border likely represent atelectasis in the lingular region, airspace disease in this site not excluded. No pleural effusion. No pneumothorax. Normal volumes. Mediastinum: Heart and mediastinal contours are unremarkable. Other: No abnormality is seen on the frontal radiograph in the area of the BB. BB not visualized on lateral radiograph. IMPRESSION: Suspect minor atelectasis in the lingula. Otherwise no acute cardiopulmonary abnormality. No rib fracture is detected on this limited evaluation. RADIA
== END 2018-03-08 10:28 | disposition home or self-care (01) ==
LOC: DI 10:27
PROVIDERS: ATTEND Internal Medicine
DX: S23.41XA Sprain of ribs, initial encounter (principal)
CPT/HCPCS: 71046

== ENCOUNTER 2018-03-11 19:47 | Emergency (ER) | payer MEDICARE ==
[2018-03-11 19:58] VITALS: BP 152/93
--- NOTE | 2018-03-11 23:05 | ED Physician Documentation ---
PD HPI ABD PAIN - Stated complaint Stated Complaint: ABD PX - Chief complaint Chief Complaint: Abd Pain - History obtained from History obtained from: Patient, Friend - History of Present Illness Timing - onset: How many days ago (2) Timing - duration: Days Timing - details: Gradual onset, Still present, Waxing and waning Quality: Cramping, Fullness/distended, Pain Location: Suprapubic Radiation: Lower back Improved by: Laying still Worsened by: Moving, Position Associated symptoms: Constipation Similar symptoms before: Diagnosis (constipation) Recently seen: Not recently seen - Additional information Additional information: 82-year-old male Retention and benign prostatic hypertrophy has developed constlois leach over the past 3 days and today he has had quite a bit of cramping abdominal pain and stool softeners he took last night has not produced any results. Review of Systems Constitutional: denies: Fever, Chills, Myalgias Nose: denies: Rhinorrhea / runny nose, Congestion Throat: denies: Sore throat Cardiac: denies: Chest pain / pressure, Palpitations Respiratory: denies: Dyspnea, Cough GI: reports: Abdominal Pain. denies: Nausea, Vomiting : denies: Dysuria, Frequency PD PAST MEDICAL HISTORY - Past Medical History Past Medical History: Yes Cardiovascular: Hypertension Respiratory: None Neuro: None Endocrine/Autoimmune: HyPOthyroidism, Other GI: None : Benign prostate hypertrophy, Retention HEENT: None Psych: None Musculoskeletal: Osteoarthritis, Other Derm: None - Past Surgical History Past Surgical History: Yes Ortho: Knee replacement, Spine surgery - Present Medications Home Medications: Ambulatory Orders Medication Instructions Recorded Confirmed RX: Metoprolol Tartrate [Lopressor] 25 mg PO BID 07/05/13 03/11/18 RX: Multivitamin [Multi-Vitamin 1 each PO DAILY 07/05/13 03/11/18 Daily] RX: Levothyroxine [Synthroid] 50 mcg PO QDAC #60 tablet 12/01/17 03/11/18 RX: Omeprazole [PriLOSEC] 20 mg PO BID 12/01/17 03/11/18 - Allergies Allergies/Adverse Reactions: Allergies Allergy/AdvReac Type Severity Reaction Status Date / Time No Known Drug Allergies Allergy Verified 03/11/18 19:57 - Social History Does the pt smoke?: No Smoking Status: Never smoker Does the pt drink ETOH?: Yes ETOH Use: Wine Does the pt have substance abuse?: No - Immunizations Immunizations are current?: Yes - POLST Patient has POLST: No POLST Status: Full Code PD ED PE NORMAL - Vitals Vital signs reviewed: Yes (hypertensive ) - General General: Alert and oriented X 3, No acute distress, Well developed/nourished - HEENT HEENT: Atraumatic, PERRL, EOMI - Neck Neck: Supple, no meningeal sign, No bony TTP - Cardiac Cardiac: RRR, No murmur - Respiratory Respiratory: No respiratory distress, Clear bilaterally - Abdomen Abdomen: Soft, Non tender - Rectal Rectal: No: Other (There is normal sphincter tone, no external hemorrhoids and firm high lying stool. ) - Back Back: No CVA TTP, No spinal TTP - Derm Derm: Normal color, Warm and dry, No rash - Extremities Extremities: No deformity, No edema - Neuro Neuro: Alert and oriented X 3, brand specialist 2-12 intact, No motor deficit, No sensory deficit, Normal speech Eye Opening: Spontaneous Motor: Obeys Commands Verbal: Oriented GCS Score: 15 - Psych Psych: Normal mood, Normal affect Results - Vitals Vitals: Vital Signs - 24 hr 03/11/18 03/11/18 19:53 22:56 Temperature 36.6 C Heart Rate 83 Respiratory 16 15 Rate Blood Pressure 152/93 H O2 Saturation 98 Oxygen O2 Source [With Activity] Room air O2 Source [Without Activity] Room air O2 Source Room air Procedures - Bedside sono Bedside sono by EMP: With use of bedside ultrasound the bladder is imaged there is urine in the bladder and the exact volume is estimated below 400 mils. PD MEDICAL DECISION MAKING - ED course Complexity details: reviewed results, re-evaluated patient, considered differential, d/w patient, d/w family ED course: 82-year-old male with constipation has a feeling of bloating and abdominal pain and he feels miserable with this. I am concerned about the possibility of urinary retention bladder scan shows more than 200 mL's of urine in the bladder the patient is administered an oil retention enema with excellent results and complete resolution of symptoms. He is discharged home without further workup. - Sepsis Event Vital Signs: Vital Signs - 24 hr 03/11/18 03/11/18 19:53 22:56 Temperature 36.6 C Heart Rate 83 Respiratory 16 15 Rate Blood Pressure 152/93 H O2 Saturation 98 Oxygen O2 Source [With Activity] Room air O2 Source [Without Activity] Room air O2 Source Room air Departure - Departure Disposition: 01 Home, Self Care Clinical Impression: Constipation Qualifiers: Constipation type: unspecified constipation type Qualified Code(s): K59.00 - Constipation, unspecified Instructions: ED Constipation Follow-Up: Elicia Melgar MD [Primary Care Provider] - Discharge Date/Time: 03/11/18 23:15
== END 2018-03-11 23:15 | disposition home or self-care (01) ==
LOC: ED 19:47
DX: K59.00 Constipation, unspecified (principal); I10 Essential (primary) hypertension; E03.9 Hypothyroidism, unspecified
CPT/HCPCS: 99282; 99283

== ENCOUNTER 2018-03-31 16:23 | Outpatient (CLI) | payer MEDICARE | END 2018-03-31 16:24 | disposition critical access hospital (66) | LOC: EMS 16:23 | PROVIDERS: ATTEND Surgery | DX: S09.90XA Unspecified injury of head, initial encounter (principal); W19.XXXA Unspecified fall, initial encounter | CPT/HCPCS: A0425; A0429 ==

== ENCOUNTER 2018-03-31 16:41 | Emergency (ER) | payer MEDICARE ==
[2018-03-31] MEDS ORDERED: BUFFERED LIDOCAINE 10 ML SYRINGE SUBQ ONE (17:02)
--- NOTE | 2018-03-31 17:04 | ED Physician Documentation ---
PD HPI HEAD INJURY - Stated complaint Stated Complaint: GLF - Chief complaint Chief Complaint: Laceration - History obtained from History obtained from: Patient, Family, EMS - History of Present Illness Mechanism of head injury: Fell (82-year-old gentleman was out for a walk with his . He is up-to-date on tetanus. He wanted to take a rest and lean on something that gave way and he fell on the concrete injuring his head, left chest wall, and face. No loss of consciousness. He is not anticoagulated.) Review of Systems Constitutional: denies: Fever, Chills Eyes: denies: Loss of vision, Decreased vision Throat: denies: Dental pain / toothache PD PAST MEDICAL HISTORY - Past Medical History Cardiovascular: Hypertension Respiratory: None Neuro: None Endocrine/Autoimmune: HyPOthyroidism, Other GI: None : Benign prostate hypertrophy, Retention HEENT: None Psych: None Musculoskeletal: Osteoarthritis, Other Derm: None - Past Surgical History Past Surgical History: Yes Ortho: Knee replacement, Spine surgery - Present Medications Home Medications: Ambulatory Orders Medication Instructions Recorded Confirmed Metoprolol Tartrate [Lopressor] 25 mg PO BID 07/05/13 03/11/18 Multivitamin [Multi-Vitamin Daily] 1 each PO DAILY 07/05/13 03/11/18 Levothyroxine [Synthroid] 50 mcg PO QDAC #60 tablet 12/01/17 03/11/18 Omeprazole [PriLOSEC] 20 mg PO BID 12/01/17 03/11/18 Cephalexin [Keflex] 500 mg PO Q6H #20 capsule 03/31/18 Rivastigmine 1 each TD 03/31/18 Simvastatin 20 mg PO QPM 03/31/18 03/31/18 - Allergies Allergies/Adverse Reactions: Allergies Allergy/AdvReac Type Severity Reaction Status Date / Time No Known Drug Allergies Allergy Verified 03/31/18 16:49 - Social History Does the pt smoke?: No Smoking Status: Never smoker Does the pt drink ETOH?: Yes Does the pt have substance abuse?: No - Immunizations Immunizations are current?: Yes - POLST Patient has POLST: No POLST Status: Full Code PD ED PE NORMAL - Vitals Vital signs reviewed: Yes - General General: Alert and oriented X 3, No acute distress - HEENT HEENT: PERRL, EOMI, Other (He has 2 long lacerations on the right forehead, he has significant periorbital edema and ecchymosis on the right with infraorbital tenderness on the right. There is also a small laceration on the right eyelid upper. He has a laceration on the philtrum. No loose or chipped teeth. Finally he has an intraoral laceration measuring 2 cm in the area of the frenulum) - Neck Neck: No bony TTP - Cardiac Cardiac: RRR, No murmur - Respiratory Respiratory: No respiratory distress, Clear bilaterally, Other (Mild tenderness left chest wall laterally) - Abdomen Abdomen: Normal bowel sounds, Soft, Non tender - Back Back: No CVA TTP, No spinal TTP - Extremities Extremities: No deformity, No tenderness to palpate, Other (Tender and swollen at the middle finger PIP of the left hand with ecchymosis but no limited range of motion) - Neuro Neuro: Alert and oriented X 3, applications packager 2-12 intact Eye Opening: Spontaneous Motor: Obeys Commands Verbal: Oriented GCS Score: 15 - Psych Psych: Normal mood, Normal affect Results - Vitals Vitals: Vital Signs - 24 hr 03/31/18 16:45 Temperature 36.6 C Heart Rate 65 Respiratory 18 Rate Blood Pressure 137/120 H O2 Saturation 98 Oxygen O2 Source [] Room air O2 Source [] Room air O2 Source Room air - Rads (name of study) CT head/face/Cspine Radiology: EMP read contemporaneously (No intracranial injury or facial or cervical spine fracture) Procedures - Laceration (location) forehead Length in cm: 10 Wound type: Linear (2 cuts each about 5 cm long, both vertical and on the right side of the forehead with josephine-laceration abrasion.) Anesthesia: Lidocaine 1%, With bicarb Wound Preparation: Irrigated copiously NS Skin layer closure: Nylon, Running, Size #-0 - enter number (5-0) Other: Patient tolerated well, No complications, Neurovascular intact, Tetanus UTD Complexity: Simple Eyelid right Length in cm: 1 Anesthesia: Lidocaine 1%, With bicarb Wound Preparation: Irrigated copiously NS Skin layer closure: Prolene, Interrupted, Size #-0 - enter number (6-0), Sutures - enter # (2) Complexity: Simple upper lip Length in cm: 3 Wound type: Curved, Stellate, Irregular, Into subcut fat Neurovascular status: Sensory intact, Motor intact Anesthesia: Lidocaine 1%, With bicarb Wound Preparation: Irrigated copiously NS Skin layer closure: Nylon, Interrupted, Size #-0 - enter number (5-0) Other: Tetanus UTD Complexity: Simple inner upper lip Length in cm: 2 Wound type: Curved, Stellate Anesthesia: Lidocaine 1% with epi Deep layer closure: Vicryl (5-0 x 4) PD MEDICAL DECISION MAKING - ED course ED course: This is an elderly gentleman who seems to have mild dementia who had a ground- level fall today with extensive and complicated facial lacerations which were repaired. Given that all of the lacerations were in abrasion somewhat larger suture was used than what I would normally use for facial lacerations because I did not think that the normal-sized suture would hold, and because of that a slightly prolonged Time for the sutures to be in was advised and he was also given antibiotics. Departure - Departure Disposition: 01 Home, Self Care Clinical Impression: Fall from ground level Laceration of face, complicated Qualifiers: Encounter type: initial encounter Qualified Code(s): S01.81XA - Laceration without foreign body of other part of head, initial encounter Head injury Qualifiers: Encounter type: initial encounter Qualified Code(s): S09.90XA - Unspecified injury of head, initial encounter Facial contusion Qualifiers: Encounter type: initial encounter Qualified Code(s): S00.83XA - Contusion of other part of head, initial encounter Condition: Good Record reviewed to determine appropriate education?: Yes Instructions: ED Head Injury Closed, ED Laceration Facial Sutr Tape Prescriptions: Cephalexin [Keflex] 500 mg PO Q6H #20 capsule Comments: Come back for any signs of infection which would include: Redness, swelling, drainage, increased pain, or fevers. Follow-up with your physician in 8 days for suture removal. Your blood pressure was elevated today on check into the emergency department. This does not mean that you have hypertension, it is a common phenomenon to come to the emergency department and have elevated blood pressure. I recommend that you see your primary care physician within the week to have it rechecked when you are feeling better.
--- NOTE | 2018-03-31 19:19 | CT Report ---
Reason: fall - head , face and L chest inj Procedure Date: 03/31/2018 Accession Number: [id number] / [id number] Procedure: CT - Head W/O CPT Code: FULL RESULT: EXAM: CT HEAD EXAM DATE: 03/31/2018 06:38 PM. CLINICAL HISTORY: Fall - head , face and L chest inj. COMPARISON: HEAD W/O 06/16/2015 11:49 AM. TECHNIQUE: Multiaxial CT images were obtained from the foramen magnum to the vertex. Reformats: Sagittal and coronal. IV contrast: None. In accordance with CT protocol optimization, one or more of the following dose reduction techniques were utilized for this exam: automated exposure control, adjustment of mA and/or KV based on patient size, or use of iterative reconstructive technique. FINDINGS: Parenchyma: No acute intraparenchymal hemorrhage. No evidence of mass or midline shift. Shultz-white differentiation is distinct. Nonspecific hypodense changes to the periventricular white matter, which can be seen with chronic small vessel ischemic disease. Generalized cerebral volume loss. Extraaxial Spaces: No subdural or epidural collections identified. Ventricles: Normal in size and position. Sinuses and Orbits: Imaged paranasal sinuses, orbits, and mastoids show no significant abnormality. Bones: No evidence of fracture or calvarial defect. Other: Scalp hematoma measuring 6.1 x 1.2 cm over the right frontal bone. Possible punctate radiopaque foreign body in the superficial subcutaneous tissues on image 9 of series 2. IMPRESSION: No acute intracranial findings. An acute infarct may not be visible by CT. Follow-up examinations are recommended as clinically indicated. Focal right frontal scalp hematoma without underlying skull fracture. RAD[facility]
--- NOTE | 2018-03-31 19:24 | CT Report ---
Reason: fall - head , face and L chest inj Procedure Date: 03/31/2018 Accession Number: [id number] / [id number] Procedure: CT - Facial Bones W/O CPT Code: FULL RESULT: EXAM: CT MAXILLOFACIAL WITHOUT CONTRAST EXAM DATE: 03/31/2018 06:59 PM. CLINICAL HISTORY: Fall - head , face and L chest inj. COMPARISONS: HEAD W/O 03/31/2018 6:38 PM. TECHNIQUE: Thin-section axial images were acquired of the face without contrast. Post-processing: Coronal and sagittal reformats. Other: None. In accordance with CT protocol optimization, one or more of the following dose reduction techniques were utilized for this exam: automated exposure control, adjustment of mA and/or KV based on patient size, or use of iterative reconstructive technique. FINDINGS: Soft Tissue: Focal right frontal scalp hematoma. Possible punctate radiopaque foreign body in the superficial subcutaneous tissues on image 158 of series 3. Orbits: Symmetric and unremarkable. Bones: No acute fracture or dislocation visualized. Temporomandibular Joints: The temporomandibular joints are symmetric and normally located. Sinuses: Mild mucosal thickening in the ethmoid air cells. Other: Nonspecific debris in the right external auditory canal. IMPRESSION: Right frontal scalp hematoma. No acute fracture or dislocation visualized. RADIA
--- NOTE | 2018-03-31 19:27 | CT Report ---
Reason: fall - head , face and L chest inj Procedure Date: 03/31/2018 Accession Number: [id number] / [id number] Procedure: CT - Cervical Spine W/O CPT Code: FULL RESULT: EXAM: CT CERVICAL SPINE WITHOUT CONTRAST DATE: 03/31/2018 06:59 PM. HISTORY: Fall - head , face and L chest inj. COMPARISONS: HEAD W/O 06/16/2015 11:49 AM. TECHNIQUE: Thin-section axial images were acquired of the cervical spine without contrast. Post-processing: Coronal and sagittal reformats. Other: None. In accordance with CT protocol optimization, one or more of the following dose reduction techniques were utilized for this exam: automated exposure control, adjustment of mA and/or KV based on patient size, or use of iterative reconstructive technique. FINDINGS: Alignment: Mild levoconvex curvature of the lower cervical spine. Reversal of the cervical lordosis, likely related to chronic degenerative change. Bones/discs: Osteopenia. No acute fracture, subluxation, or compression deformity. Moderate to severe multilevel degenerative facet arthropathy and degenerative disk disease. Narrowing of the spinal canal from C5-C7. Musculature: Unremarkable. Other: The paravertebral and prevertebral soft tissues are unremarkable. The lung apices are clear. IMPRESSION: Osteopenia. No acute fracture or malalignment of the cervical spine. RADIA
--- NOTE | 2018-03-31 19:27 | CT Report ---
Reason: fall - head , face and L chest inj Procedure Date: 03/31/2018 Accession Number: [id number] / [id number] Procedure: CT - Chest W/O CPT Code: FULL RESULT: EXAM: CT CHEST EXAM DATE: 03/31/2018 06:59 PM. CLINICAL HISTORY: Fall. Left chest injury. COMPARISONS: CHEST W/O 03/31/2018 6:47 PM. TECHNIQUE: Routine helical CT imaging was performed through the chest. IV contrast: None. Reconstructions: Coronal and sagittal. In accordance with CT protocol optimization, one or more of the following dose reduction techniques were utilized for this exam: automated exposure control, adjustment of mA and/or KV based on patient size, or use of iterative reconstructive technique. FINDINGS: Lungs/Pleura: 5 mm perivascular nodule in the anterior right lower lobe (4/45). 3 mm calcified granuloma in the anterior left upper lobe (4/27). No focal infiltrate, pleural effusion, or pneumothorax. Mediastinum: No evidence for mediastinal hematoma. Heart size is normal. Mild atherosclerotic calcifications within the coronary arteries. Trace atherosclerotic calcifications within the aorta. 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 No adenopathy. Bones: Subacute appearing nondisplaced fractures of the right anterior sixth through eighth ribs, with subtle adjacent periosteal reaction. Right convex curvature of the thoracic spine centered at T6-T7. Multilevel degenerative disk disease, most pronounced and moderate to severe at T6-T7 and L1-L2. Visualized Abdomen: 13 mm cyst in inferior right hepatic lobe segment 6 (3/67). Cholelithiasis without gallbladder distention or pericholecystic fat stranding to suggest acute cholecystitis. Tiny calcified splenic granulomata. Other: None. IMPRESSION: 1. No convincing acute traumatic injury detected in the chest. 2. Subacute appearing nondisplaced right anterior sixth through eighth rib fractures. 3. 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 4. 5 mm right lower lobe nodule. No routine follow-up imaging is needed in a high risk or a low-risk patient per 2017 Fleischner Society guidelines; consider optional twelve-month follow-up CT chest in a high risk patient. RADIA
[2018-03-31] MEDS ORDERED: cephALEXin 250 MG CAPSULE PO STA (19:56)
[2018-03-31] MEDS ORDERED: LIDOCAINE 1%-EPI 1:100000 30 ML MDV ONE (20:03)
--- NOTE | 2018-03-31 20:10 | XRAY Report ---
Reason: hand inj Procedure Date: 03/31/2018 Accession Number: [id number] / [id number] Procedure: XR - Hand 3 View LT CPT Code: FULL RESULT: EXAM: LEFT HAND RADIOGRAPHY EXAM DATE: 03/31/2018 07:33 PM. CLINICAL HISTORY: Left hand injury. Middle finger laceration and swelling at PIP joint after fall today. COMPARISON: None. TECHNIQUE: 4 views. FINDINGS: Bones: No fracture or bone lesion. Joints: Normal alignment. Severe joint space loss and osteophytosis at the first CMC joint, and mild joint space loss and osteophytosis at the interphalangeal joints, compatible with osteoarthritis. Soft Tissues: Focal swelling posteromedial to the fourth proximal phalanx and PIP joint. No radiopaque or radiographically evident radiolucent foreign body. IMPRESSION: 1. Osteoarthritis, most pronounced and severe at the first CMC joint. 2. No acute bony abnormality. RADIA
[2018-03-31 20:31] VITALS: BP 173/108
== END 2018-03-31 20:33 | disposition home or self-care (01) ==
LOC: EDUNIT# → ED 16:41
DX: S01.81XA Laceration without foreign body of other part of head, initial encounter (principal); S09.90XA Unspecified injury of head, initial encounter; W18.30XA Fall on same level, unspecified, initial encounter; Y93.01 Activity, walking, marching and hiking; Y92.89 Other specified places as the place of occurrence of the external cause; I10 Essential (primary) hypertension; E03.9 Hypothyroidism, unspecified; Z96.659 Presence of unspecified artificial knee joint; F03.90 Unspecified dementia, unspecified severity, without behavioral disturbance, psychotic disturbance, mood disturbance, and anxiety
CPT/HCPCS: 12035; 12051; 70450; 70486; 71250; 72125; 73130; 99283; A9270